=== PATIENT | male | born 1965 | race African-American/Black ===

== ENCOUNTER 2017-06-19 15:45 | Inpatient (IN) | payer OTHER ==
[2017-06-19 20:14] VITALS: BMI 26.6
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
[2017-06-19] MEDS ORDERED: ACETAMINOPHEN 325 MG TABLET (FP) PO PRN (20:50)
[2017-06-19] MEDS ORDERED: chlordiazePOXIDE HCL 25 MG CAPSULE PO PRN (20:50)
[2017-06-19] MEDS ORDERED: MAG HYDROX/AL HYDROX/SIMETH 30 ML UNIT-DOSE CUP PO PRN (20:50)
[2017-06-19] MEDS ORDERED: MENTHOL/PHENOL 1 EACH UD MM PRN (20:50)
[2017-06-19] MEDS ORDERED: IBUPROFEN 400 MG TABLET (FP) PO PRN (20:50)
[2017-06-19] MEDS ORDERED: guaiFENesin/D-METHORPHAN HB 10 ML UNIT-DOSE CUPS PO PRN (20:50)
[2017-06-19] MEDS ORDERED: P-EPHED 60MG/TRIPROLIDI 2.5MG TABLET PO PRN (20:50)
[2017-06-19] MEDS ORDERED: NICOTINE POLACRILEX 2 MG GUM BC PRN (20:50)
[2017-06-19] MEDS ORDERED: MAGNESIUM CITRATE 300 ML BOTTLE PO PRN (20:50)
[2017-06-19] MEDS ORDERED: hydrOXYzine PAMOATE 50 MG CAPSULE (FP) PO PRN (20:50)
[2017-06-19] MEDS ORDERED: LOPERAMIDE HCL 2 MG CAPSULE PO PRN (20:50)
[2017-06-19] MEDS ORDERED: MAGNESIUM HYDROX 2400MG/30ML ORAL SUSPENSION 30 ML CUP PO PRN (20:50)
[2017-06-19] MEDS ORDERED: cloNIDine HCL 0.1 MG TABLET PO ONE (20:55)
[2017-06-19] MEDS: chlordiazePOXIDE HCL 25 MG CAPSULE PO SCH (22:54)
[2017-06-19] MEDS: THIAMINE HCL 100 MG TABLET (FP) PO SCH (22:54)
[2017-06-20 01:03] LABS: URINE APPEARANCE CLEAR; URINE BILIRUBIN NEGATIVE (NEGATIVE); URINE BLOOD NEGATIVE (NEGATIVE); URINE COLOR YELLOW; URINE GLUCOSE (UA) NEGATIVE (NEGATIVE); URINE KETONE NEGATIVE (NEGATIVE); URINE NITRITE NEGATIVE (NEGATIVE)
[2017-06-20 01:07] LABS: URINE PROTEIN 1+ (NEGATIVE)
[2017-06-20 01:13] LABS: URINE HYALINE CAST 4 /lpf; URINE MUCUS RARE; URINE RBC 6 /hpf (0-3); URINE WBC 1 /hpf (3-5)
[2017-06-20] MEDS: chlordiazePOXIDE HCL 25 MG CAPSULE PO SCH ×4 (05:32→22:03)
[2017-06-20 09:59] LABS: MCH 32.1 pg (25.7-33.7); MCHC 35.1 g/dl (32.0-35.9); MEAN CELL VOLUME 91.6 fl (80-96); MEAN PLT VOLUME 8.9 fl (7.5-11.1); PLATELET COUNT 78 K/MM3 (134-434); RDW 16.5 % (11.9-15.9); WHITE BLOOD COUNT 2.7 K/mm3 (4.0-10.0)
[2017-06-20 10:27] LABS: ALBUMIN 2.1 g/dl (3.4-5.0); ALK PHOS 213 U/L (45-117); ANION GAP 12 (8-16); BILIRUBIN,TOTAL 1.7 mg/dL (0.2-1.0); CALCIUM 7.6 mg/dL (8.5-10.1); CO2 24 mmol/L (21-32); CREATININE 2.1 mg/dL (0.7-1.3); GLUCOSE,RANDOM 145 mg/dL (74-106); SGOT/AST 102 U/L (15-37); SGPT/ALT 76 U/L (12-78); TOT PROT 5.3 g/dl (6.4-8.2)
--- NOTE | 2017-06-20 10:28 | CONSULT ---
[facility] Psychiatric Consult - Data Date of interview: 06/20/17 Admission source: [facility] Identifying data: This is 51 years old male with psychiatric hospitalization history, history of depression, intoxicated with: Alcohol Substance Abuse History: moking Cessation. Smoking history: Current every day smoker. Have you smoked in the past 12 months: Yes. Aproximately how many cigarettes per day: 40. Hx Chewing Tobacco Use: No. Initiated information on smoking cessation: Yes. 'Breaking Loose' booklet given: 06/19/17. - Substance & Tx. History. Hx Alcohol Use: Yes (VODKA, BEER). Hx Substance Use: Yes (3 YEARS AGO, PERIOD OF DRUG USE UNKNOWN). Substance Use Type: Alcohol, Cocaine. Hx Substance Use Treatment: No ([facility] IN [facility] FROM [id number]). - Substances Abused. Alcohol. Route: Oral. Frequency: Daily. Amount used: VODKA 3 PINTS, BEER 6 PACK. Age of first use: 14. Date of Last Use: 06/19/17 Medical History: HTN, Seizure history Psychiatric History: Patient reports history of depression with most recent psychiatrioc admission on above more then 10m years ago, reports no suicidal history, reports taking prior to admission no psychiatric medications Physical/Sexual Abuse/Trauma History: Denies Additional Comment: Observation. Detox Unit Care Protocol Mental Status Exam - Mental Status Exam Alert and Oriented to: Person Cognitive Function: Fair Patient Appearance: Unkempt Mood: Sad Affect: Flat Patient Behavior: Sedated Speech Pattern: Delayed Voice Loudness: Mildly Soft/Quiet Thought Process: Circumstantial Thought Disorder: Being Controlled Hallucinations: Denies Suicidal Ideation: Denies Homicidal Ideation: Denies Insight/Judgement: Fair Sleep: Difficulty falling asleep Appetite: Fair Muscle strength/Tone: Mild Hypotonicity Gait/Station: Shuffling Additional Comments: Observation. Detox Unit Care Protocol Psychiatric Findings - Problem List ([place] 1, 2,3) (1) Alcohol dependence with uncomplicated withdrawal Current Visit: Yes Status: Acute (2) Alcohol-induced mood disorder Current Visit: Yes Status: Acute (3) Alcohol induced insomnia Current Visit: Yes Status: Acute - Initial Treatment Plan Initial Treatment Plan: Observation. Detox Unit Care Protocol
[2017-06-20] MEDS: NICOTINE 14 MG/24 HOURS TOPICAL PATCH TD SCH (10:29)
[2017-06-20] MEDS: PRENATAL VITAMINS W/ FOLIC ACID TABLET (FP) PO SCH (10:29)
[2017-06-20 10:46] LABS: SICKLE CELL SCREEN POSITIVE (NEGATIVE)
[2017-06-20 11:17] LABS: URINE LEUK ESTERASE Negative (NEGATIVE)
[2017-06-20 11:58] LABS: HIV 1 & 2 AB NEGATIVE; HIV 1 AGp24 NEGATIVE
[2017-06-20] MEDS ORDERED: PNEUMOCOCCAL 23 VACCINE 0.5 ML VIAL IM ONE (12:00)
[2017-06-20] MEDS ORDERED: FLU VACCINE QUAD 60 MCG/0.5 ML (MDV 17-18) IM ONE (12:00)
[2017-06-20] MEDS ORDERED: PNEUMOC 13-VAL CONJ-DIP CRM/PF 0.5 ML DISP.SYRIN IM ONE (12:00)
--- NOTE | 2017-06-20 12:57 | PN ---
[facility] CIWA - CIWA Score Nausea/Vomitin-No Nausea/No Vomiting Muscle Tremors: 4-Moderate,w/Arms Extend Anxiety: 3 Agitation: 3 Paroxysmal Sweats: 3 Orientation: 2-Disoriented Date<2 days Tacttile Disturbances: 1-Very Mild Itch/Numbness Auditory Disturbances: 0-None Visual Disturbances: 2-Mild Sensitivity Headache: 0-None Present CIWA-Ar Total Score: 18 BHS Progress Note (SOAP) Subjective: Tremors, Sweating. Objective: PT. A & O X 2 (UNCERTAIN ABOUT DAY / DATE). NO ACUTE DISTRESS. 06/20/17 12:55 Vital Signs Temperature 99.0 F 06/20/17 09:28 Pulse Rate 114 H 06/20/17 09:28 Respiratory Rate 18 06/20/17 09:28 Blood Pressure 125/83 06/20/17 09:28 O2 Sat by Pulse Oximetry (%) Laboratory Tests 06/19/17 06/20/17 06/20/17 23:37 07:00 07:00 WBC 2.7 L RBC 2.89 L Hgb 9.3 L Hct 26.4 L MCV 91.6 MCH 32.1 MCHC 35.1 RDW 16.5 H Plt Count 78 L MPV 8.9 Sickle Cell Screen Positive Sodium 141 Potassium 3.3 L Chloride 105 Carbon Dioxide 24 Anion Gap 12 BUN 22 H Creatinine 2.1 H Creat Clearance w eGFR 33.46 Random Glucose 145 H Calcium 7.6 L Total Bilirubin 1.7 H AST 102 H ALT 76 Alkaline Phosphatase 213 H Total Protein 5.3 L Albumin 2.1 L Urine Color Yellow Urine Appearance Clear Urine pH 5.0 Ur Specific [place] 1.014 Urine Protein 1+ H Urine Glucose (UA) Negative Urine Ketones Negative Urine Blood Negative Urine Nitrite Negative Urine Bilirubin Negative Urine Urobilinogen 2.0 Ur Leukocyte Esterase Negative Urine RBC 6 Urine WBC 1 Ur Epithelial Cells Rare Hyaline Casts 4 Urine Mucus Rare RPR Titer HIV 1&2 Antibody Screen HIV P24 Antigen 06/20/17 06/20/17 07:00 07:00 WBC RBC Hgb Hct MCV MCH MCHC RDW Plt Count MPV Sickle Cell Screen Sodium Potassium Chloride Carbon Dioxide Anion Gap BUN Creatinine Creat Clearance w eGFR Random Glucose Calcium Total Bilirubin AST ALT Alkaline Phosphatase Total Protein Albumin Urine Color Urine Appearance Urine pH Ur Specific [place] Urine Protein Urine Glucose (UA) Urine Ketones Urine Blood Urine Nitrite Urine Bilirubin Urine Urobilinogen Ur Leukocyte Esterase Urine RBC Urine WBC Ur Epithelial Cells Hyaline Casts Urine Mucus RPR Titer Nonreactive HIV 1&2 Antibody Screen Negative HIV P24 Antigen Negative LABS NOTED. Assessment: 06/20/17 12:56 WITHDRAWAL SYMPTOMS. HYPOKALEMIA. ANEMIA. THROMBOCYTOPENIA. 06/20/17 13:03 Plan: CONTINUE DETOX. K-DUR, 20 MEQ PO X 1 NOW, THEN 20 MEQ PO BID AFTER. FEOSOL, 325 MG PO BIDWM. REPEAT CBC, CMP ON 06/22/2017 FOR ADMISSION ABNORMAL VALUES. BGM ACBK FOR ELEVATED ADMISSION RANDOM GLUCOSE LEVEL. D/C MAGNESIUM-CONTAINING MEDS. INCREASE DAILY PO FLUID INTAKE.
[2017-06-20] MEDS ORDERED: POTASSIUM CHLORIDE TABS 20 MEQ TABLET.ER (FP) PO ONE (13:30)
--- NOTE | 2017-06-20 17:09 | EKG ---
Test Reason : Blood Pressure : / mmHG Vent. Rate : 084 BPM Atrial Rate : 084 BPM P-R Int : 152 ms QRS Dur : 088 ms QT Int : 434 ms P-R-T Axes : 071 077 091 degrees QTc Int : 512 ms NORMAL SINUS RHYTHM MINIMAL VOLTAGE CRITERIA FOR LVH, MAY BE NORMAL VARIANT T WAVE ABNORMALITY, CONSIDER INFEROLATERAL ISCHEMIA PROLONGED QT ABNORMAL ECG NO PREVIOUS ECGS AVAILABLE Confirmed by CASSI CHANCE, MELANY (2013) on 06/20/2017 5:08:56 PM Referred By: Confirmed By:MELANY YE MD
[2017-06-20] MEDS: POTASSIUM CHLORIDE TABS 20 MEQ TABLET.ER (FP) PO SCH (17:21)
[2017-06-20] MEDS: FERROUS SO4 325 MG TABLET (FP) PO SCH (17:21)
[2017-06-20] MEDS: diphenhydrAMINE HCL 50 MG CAPSULE PO PRN (22:03)
[2017-06-20] MEDS: THIAMINE HCL 100 MG TABLET (FP) PO SCH (22:03)
[2017-06-21] MEDS: chlordiazePOXIDE HCL 25 MG CAPSULE PO SCH ×3 (05:45→17:09)
[2017-06-21] MEDS: FERROUS SO4 325 MG TABLET (FP) PO SCH ×2 (08:11→17:09)
[2017-06-21] MEDS: NICOTINE 14 MG/24 HOURS TOPICAL PATCH TD SCH (10:28)
[2017-06-21] MEDS: POTASSIUM CHLORIDE TABS 20 MEQ TABLET.ER (FP) PO SCH ×2 (10:28→17:09)
[2017-06-21] MEDS: PRENATAL VITAMINS W/ FOLIC ACID TABLET (FP) PO SCH (10:28)
--- NOTE | 2017-06-21 13:10 | PN ---
[facility] CIWA - CIWA Score Nausea/Vomitin-No Nausea/No Vomiting Muscle Tremors: 4-Moderate,w/Arms Extend Anxiety: 3 Agitation: 2 Paroxysmal Sweats: 3 Orientation: 2-Disoriented Date<2 days Tacttile Disturbances: 2-Mild Itch/Numbness/Burn Auditory Disturbances: 2-Mild Harshness/Frighten Visual Disturbances: 0-None Headache: 0-None Present CIWA-Ar Total Score: 18 S Progress Note (SOAP) Subjective: Tremors, Sweating, Stomach Cramping, Interrupted Sleep. Objective: PT. A & O X 2 (UNCERTAIN ABOUT DAY / DATE). PT. OBSERVED AMBULATING ON UNIT. NO ACUTE DISTRESS. PT. DENIES CHEST PAIN. 06/21/17 13:07 Vital Signs Temperature 98.2 F 06/21/17 10:00 Pulse Rate 121 H 06/21/17 10:00 Respiratory Rate 18 06/21/17 10:00 Blood Pressure 136/94 06/21/17 10:00 O2 Sat by Pulse Oximetry (%) Laboratory Tests 06/19/17 06/20/17 06/20/17 23:37 07:00 07:00 WBC 2.7 L RBC 2.89 L Hgb 9.3 L Hct 26.4 L MCV 91.6 MCH 32.1 MCHC 35.1 RDW 16.5 H Plt Count 78 L MPV 8.9 Sickle Cell Screen Positive Sodium 141 Potassium 3.3 L Chloride 105 Carbon Dioxide 24 Anion Gap 12 BUN 22 H Creatinine 2.1 H Creat Clearance w eGFR 33.46 POC Glucometer Random Glucose 145 H Calcium 7.6 L Total Bilirubin 1.7 H AST 102 H ALT 76 Alkaline Phosphatase 213 H Total Protein 5.3 L Albumin 2.1 L Urine Color Yellow Urine Appearance Clear Urine pH 5.0 Ur Specific [place] 1.014 Urine Protein 1+ H Urine Glucose (UA) Negative Urine Ketones Negative Urine Blood Negative Urine Nitrite Negative Urine Bilirubin Negative Urine Urobilinogen 2.0 Ur Leukocyte Esterase Negative Urine RBC 6 Urine WBC 1 Ur Epithelial Cells Rare Hyaline Casts 4 Urine Mucus Rare RPR Titer HIV 1&2 Antibody Screen HIV P24 Antigen 06/20/17 06/20/17 06/21/17 07:00 07:00 05:47 WBC RBC Hgb Hct MCV MCH MCHC RDW Plt Count MPV Sickle Cell Screen Sodium Potassium Chloride Carbon Dioxide Anion Gap BUN Creatinine Creat Clearance w eGFR POC Glucometer 118 Random Glucose Calcium Total Bilirubin AST ALT Alkaline Phosphatase Total Protein Albumin Urine Color Urine Appearance Urine pH Ur Specific [place] Urine Protein Urine Glucose (UA) Urine Ketones Urine Blood Urine Nitrite Urine Bilirubin Urine Urobilinogen Ur Leukocyte Esterase Urine RBC Urine WBC Ur Epithelial Cells Hyaline Casts Urine Mucus RPR Titer Nonreactive HIV 1&2 Antibody Screen Negative HIV P24 Antigen Negative LABS NOTED. RESULT OF BGM NOTED. 06/21/17 13:09 Assessment: 06/21/17 13:08 WITHDRAWAL SYMPTOMS. Plan: CONTINUE DETOX.
[2017-06-21] MEDS: THIAMINE HCL 100 MG TABLET (FP) PO SCH (22:08)
[2017-06-21] MEDS: chlordiazePOXIDE 5 MG CAPSULE PO SCH (22:08)
[2017-06-22] MEDS: chlordiazePOXIDE 5 MG CAPSULE PO SCH ×3 (05:39→17:35)
[2017-06-22] MEDS: FERROUS SO4 325 MG TABLET (FP) PO SCH ×2 (07:33→17:35)
[2017-06-22 10:20] LABS: BASOPHIL 0.9 % (0-2.0); EOSINOPHIL 1.4 % (0-4.5); MCH 32.1 pg (25.7-33.7); MCHC 34.5 g/dl (32.0-35.9); MEAN CELL VOLUME 92.9 fl (80-96); MEAN PLT VOLUME 8.5 fl (7.5-11.1); NEUTROPHILS 64.9 % (42.8-82.8); PLATELET COUNT 81 K/MM3 (134-434); RDW 16.6 % (11.9-15.9); WHITE BLOOD COUNT 3.6 K/mm3 (4.0-10.0)
[2017-06-22] MEDS: PRENATAL VITAMINS W/ FOLIC ACID TABLET (FP) PO SCH (10:23)
[2017-06-22] MEDS: NICOTINE 14 MG/24 HOURS TOPICAL PATCH TD SCH (10:23)
[2017-06-22] MEDS: POTASSIUM CHLORIDE TABS 20 MEQ TABLET.ER (FP) PO SCH ×2 (10:23→17:35)
[2017-06-22 10:28] LABS: ALBUMIN 1.9 g/dl (3.4-5.0); ANION GAP 5 (8-16); BILIRUBIN,TOTAL 1.2 mg/dL (0.2-1.0); CALCIUM 7.9 mg/dL (8.5-10.1); CO2 28 mmol/L (21-32); CREATININE 1.6 mg/dL (0.7-1.3); GLUCOSE,RANDOM 117 mg/dL (74-106); SGOT/AST 66 U/L (15-37); SGPT/ALT 55 U/L (12-78)
[2017-06-22 10:29] LABS: ALK PHOS 172 U/L (45-117)
--- NOTE | 2017-06-22 18:59 | PN ---
[facility] Progress Note (SOAP) Subjective: Anxious, Tremors, Sweating. Objective: PT. A & O X 3, OBSERVED AMBULATING ON UNIT. NO ACUTE DISTRESS. PT. DENIES CHEST PAIN. 06/22/17 18:53 Vital Signs Temperature 97.6 F 06/22/17 17:27 Pulse Rate 113 H 06/22/17 17:27 Respiratory Rate 16 06/22/17 17:27 Blood Pressure 132/79 06/22/17 17:27 O2 Sat by Pulse Oximetry (%) Laboratory Tests 06/19/17 06/20/17 06/20/17 23:37 07:00 07:00 WBC 2.7 L RBC 2.89 L Hgb 9.3 L Hct 26.4 L MCV 91.6 MCH 32.1 MCHC 35.1 RDW 16.5 H Plt Count 78 L MPV 8.9 Neutrophils % Lymphocytes % Monocytes % Eosinophils % Basophils % Sickle Cell Screen Positive Sodium 141 Potassium 3.3 L Chloride 105 Carbon Dioxide 24 Anion Gap 12 BUN 22 H Creatinine 2.1 H Creat Clearance w eGFR 33.46 POC Glucometer Random Glucose 145 H Calcium 7.6 L Total Bilirubin 1.7 H AST 102 H ALT 76 Alkaline Phosphatase 213 H Total Protein 5.3 L Albumin 2.1 L Urine Color Yellow Urine Appearance Clear Urine pH 5.0 Ur Specific [place] 1.014 Urine Protein 1+ H Urine Glucose (UA) Negative Urine Ketones Negative Urine Blood Negative Urine Nitrite Negative Urine Bilirubin Negative Urine Urobilinogen 2.0 Ur Leukocyte Esterase Negative Urine RBC 6 Urine WBC 1 Ur Epithelial Cells Rare Hyaline Casts 4 Urine Mucus Rare RPR Titer HIV 1&2 Antibody Screen HIV P24 Antigen 06/20/17 06/20/17 06/21/17 07:00 07:00 05:47 WBC RBC Hgb Hct MCV MCH MCHC RDW Plt Count MPV Neutrophils % Lymphocytes % Monocytes % Eosinophils % Basophils % Sickle Cell Screen Sodium Potassium Chloride Carbon Dioxide Anion Gap BUN Creatinine Creat Clearance w eGFR POC Glucometer 118 Random Glucose Calcium Total Bilirubin AST ALT Alkaline Phosphatase Total Protein Albumin Urine Color Urine Appearance Urine pH Ur Specific [place] Urine Protein Urine Glucose (UA) Urine Ketones Urine Blood Urine Nitrite Urine Bilirubin Urine Urobilinogen Ur Leukocyte Esterase Urine RBC Urine WBC Ur Epithelial Cells Hyaline Casts Urine Mucus RPR Titer Nonreactive HIV 1&2 Antibody Screen Negative HIV P24 Antigen Negative 06/22/17 06/22/1717 05:38 07:55 07:55 WBC 3.6 L D RBC 2.98 L Hgb 9.6 L Hct 27.7 L MCV 92.9 MCH 32.1 MCHC 34.5 RDW 16.6 H Plt Count 81 L MPV 8.5 Neutrophils % 64.9 Lymphocytes % 24.4 Monocytes % 8.4 Eosinophils % 1.4 Basophils % 0.9 Sickle Cell Screen Sodium 144 Potassium 4.1 D Chloride 111 H Carbon Dioxide 28 Anion Gap 5 L BUN 16 D Creatinine 1.6 H D Creat Clearance w eGFR 45.80 POC Glucometer 105 Random Glucose 117 H Calcium 7.9 L Total Bilirubin 1.2 H D AST 66 H D ALT 55 D Alkaline Phosphatase 172 H Total Protein 5.0 L Albumin 1.9 L Urine Color Urine Appearance Urine pH Ur Specific [place] Urine Protein Urine Glucose (UA) Urine Ketones Urine Blood Urine Nitrite Urine Bilirubin Urine Urobilinogen Ur Leukocyte Esterase Urine RBC Urine WBC Ur Epithelial Cells Hyaline Casts Urine Mucus RPR Titer HIV 1&2 Antibody Screen HIV P24 Antigen LABS NOTED. RESULTS OF REPEAT CBC AND CMP NOTED. 06/22/17 19:01 Assessment: 06/22/17 18:54 WITHDRAWAL SYMPTOMS. Plan: CONTINUE DETOX. PATIENT MADE MARTE OF POSITIVE SICKLE CELL SCREEN RESULT WHILE ADMITTED FOR DETOX. 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 COPIES OF ALL LABS DRAWN WHILE ADMITTED FOR DETOX WILL BE GIVEN TO PATIENT AT TIME OF DISCHARGE FROM DETOX TO TAKE WITH HIM FOR FOLLOW- UP.
[2017-06-22] MEDS: chlordiazePOXIDE HCL 10 MG CAPSULE PO SCH (22:21)
[2017-06-22] MEDS: THIAMINE HCL 100 MG TABLET (FP) PO SCH (22:21)
[2017-06-22] MEDS: diphenhydrAMINE HCL 50 MG CAPSULE PO PRN (22:21)
[2017-06-23] MEDS: chlordiazePOXIDE HCL 10 MG CAPSULE PO SCH ×2 (06:14→10:02)
[2017-06-23] MEDS: FERROUS SO4 325 MG TABLET (FP) PO SCH (07:53)
[2017-06-23] MEDS: PRENATAL VITAMINS W/ FOLIC ACID TABLET (FP) PO SCH (09:27)
[2017-06-23] MEDS: NICOTINE 14 MG/24 HOURS TOPICAL PATCH TD SCH (09:27)
[2017-06-23 09:29] VITALS: PULSE 118
[2017-06-23] MEDS: POTASSIUM CHLORIDE TABS 20 MEQ TABLET.ER (FP) PO SCH (09:29)
[2017-06-23 14:07] VITALS: BP 120/83; TEMP 96.7
--- NOTE | 2017-06-23 16:10 | DS ---
[facility] Detox Discharge Summary Admission Date: 06/19/17 Discharge Date: 06/23/17 - History Present History: Alcohol Dependence Pertinent Past History: HTN Seizure disorder Anemia - Physical Exam Results Vital Signs: Vital Signs Temperature 96.7 F L 06/23/17 14:05 Pulse Rate 118 H 06/23/17 14:05 Respiratory Rate 18 06/23/17 14:05 Blood Pressure 120/83 06/23/17 14:05 O2 Sat by Pulse Oximetry (%) Pertinent Admission Physical Exam Findings: Withdrawal symptoms Last Vital Signs Temp Pulse Resp BP Pulse Ox 96.7 F L 118 H 18 120/83 06/23/17 14:05 06/23/17 14:05 06/23/17 14:05 06/23/17 14:05 Laboratory Tests 06/19/17 06/20/17 06/20/17 23:37 07:00 07:00 WBC 2.7 L RBC 2.89 L Hgb 9.3 L Hct 26.4 L MCV 91.6 MCH 32.1 MCHC 35.1 RDW 16.5 H Plt Count 78 L MPV 8.9 Neutrophils % Lymphocytes % Monocytes % Eosinophils % Basophils % Sickle Cell Screen Positive Sodium 141 Potassium 3.3 L Chloride 105 Carbon Dioxide 24 Anion Gap 12 BUN 22 H Creatinine 2.1 H Creat Clearance w eGFR 33.46 POC Glucometer Random Glucose 145 H Calcium 7.6 L Total Bilirubin 1.7 H AST 102 H ALT 76 Alkaline Phosphatase 213 H Total Protein 5.3 L Albumin 2.1 L Urine Color Yellow Urine Appearance Clear Urine pH 5.0 Ur Specific [place] 1.014 Urine Protein 1+ H Urine Glucose (UA) Negative Urine Ketones Negative Urine Blood Negative Urine Nitrite Negative Urine Bilirubin Negative Urine Urobilinogen 2.0 Ur Leukocyte Esterase Negative Urine RBC 6 Urine WBC 1 Ur Epithelial Cells Rare Hyaline Casts 4 Urine Mucus Rare RPR Titer HIV 1&2 Antibody Screen HIV P24 Antigen 06/20/17 06/20/17 06/21/17 07:00 07:00 05:47 WBC RBC Hgb Hct MCV MCH MCHC RDW Plt Count MPV Neutrophils % Lymphocytes % Monocytes % Eosinophils % Basophils % Sickle Cell Screen Sodium Potassium Chloride Carbon Dioxide Anion Gap BUN Creatinine Creat Clearance w eGFR POC Glucometer 118 Random Glucose Calcium Total Bilirubin AST ALT Alkaline Phosphatase Total Protein Albumin Urine Color Urine Appearance Urine pH Ur Specific [place] Urine Protein Urine Glucose (UA) Urine Ketones Urine Blood Urine Nitrite Urine Bilirubin Urine Urobilinogen Ur Leukocyte Esterase Urine RBC Urine WBC Ur Epithelial Cells Hyaline Casts Urine Mucus RPR Titer Nonreactive HIV 1&2 Antibody Screen Negative HIV P24 Antigen Negative 06/22/17 06/22/17 06/22/17 05:38 07:55 07:55 WBC 3.6 L D RBC 2.98 L Hgb 9.6 L Hct 27.7 L MCV 92.9 MCH 32.1 MCHC 34.5 RDW 16.6 H Plt Count 81 L MPV 8.5 Neutrophils % 64.9 Lymphocytes % 24.4 Monocytes % 8.4 Eosinophils % 1.4 Basophils % 0.9 Sickle Cell Screen Sodium 144 Potassium 4.1 D Chloride 111 H Carbon Dioxide 28 Anion Gap 5 L BUN 16 D Creatinine 1.6 H D Creat Clearance w eGFR 45.80 POC Glucometer 105 Random Glucose 117 H Calcium 7.9 L Total Bilirubin 1.2 H D AST 66 H D ALT 55 D Alkaline Phosphatase 172 H Total Protein 5.0 L Albumin 1.9 L Urine Color Urine Appearance Urine pH Ur Specific [place] Urine Protein Urine Glucose (UA) Urine Ketones Urine Blood Urine Nitrite Urine Bilirubin Urine Urobilinogen Ur Leukocyte Esterase Urine RBC Urine WBC Ur Epithelial Cells Hyaline Casts Urine Mucus RPR Titer HIV 1&2 Antibody Screen HIV P24 Antigen 06/23/17 06:14 WBC RBC Hgb Hct MCV MCH MCHC RDW Plt Count MPV Neutrophils % Lymphocytes % Monocytes % Eosinophils % Basophils % Sickle Cell Screen Sodium Potassium Chloride Carbon Dioxide Anion Gap BUN Creatinine Creat Clearance w eGFR POC Glucometer 99 Random Glucose Calcium Total Bilirubin AST ALT Alkaline Phosphatase Total Protein Albumin Urine Color Urine Appearance Urine pH Ur Specific [place] Urine Protein Urine Glucose (UA) Urine Ketones Urine Blood Urine Nitrite Urine Bilirubin Urine Urobilinogen Ur Leukocyte Esterase Urine RBC Urine WBC Ur Epithelial Cells Hyaline Casts Urine Mucus RPR Titer HIV 1&2 Antibody Screen HIV P24 Antigen Labs noted: UA shows 1+ protein, encouraged to drink lots of water, repeat UA - Treatment Hospital Course: Detox Protocol Followed, Detoxed Safely, Responded well, Discharged Condition Good, Rehab Referral Accepted - Medication Discharge Medications: Ambulatory Orders NK [No Known Home Medication] 06/19/17 - Diagnosis (1) Alcohol dependence with uncomplicated withdrawal Status: Acute (2) Depression Status: Chronic (3) HTN (hypertension) Status: Chronic (4) Seizure Status: Chronic (5) Nicotine dependence Status: Chronic (6) Anemia Status: Acute (7) Hypokalemia Status: Acute - AMA Did Patient Leave Against Medical Advice: No
[2017-06-25 14:18] LABS: Hgb A2 4.3 % (0.7-3.1)
== END 2017-06-23 13:49 | disposition other institution (70) | DRG 775 ==
LOC: YASAS 15:45 → Y3N 20:46
PROVIDERS: ADMIT Internal Medicine; ATTEND Internal Medicine
PROC: HZ2ZZZZ Detoxification Services for Substance Abuse Treatment (ICD-10-PCS; principal; 2017-06-19)
DX: F10.230 Alcohol dependence with withdrawal, uncomplicated (principal); F10.24 Alcohol dependence with alcohol-induced mood disorder; F10.282 Alcohol dependence with alcohol-induced sleep disorder; F17.210 Nicotine dependence, cigarettes, uncomplicated; F32.9 Major depressive disorder, single episode, unspecified; D69.6 Thrombocytopenia, unspecified; D64.9 Anemia, unspecified; I10 Essential (primary) hypertension; E87.6 Hypokalemia; Z86.69 Personal history of other diseases of the nervous system and sense organs
CPT/HCPCS: 36415; 80053; 81003; 81015; 83021; 85025; 85027; 85660; 86593; 87389; 90688; 90732; 93005; 93010; G0008; G0009

== ENCOUNTER 2017-06-23 14:05 | Inpatient (IN) | payer OTHER ==
[2017-06-23] MEDS ORDERED: MAGNESIUM HYDROX 2400MG/30ML ORAL SUSPENSION 30 ML CUP PO PRN (15:07)
[2017-06-23] MEDS ORDERED: P-EPHED 60MG/TRIPROLIDI 2.5MG TABLET PO PRN (15:07)
[2017-06-23] MEDS ORDERED: LOPERAMIDE HCL 2 MG CAPSULE PO PRN (15:07)
[2017-06-23] MEDS ORDERED: MAG HYDROX/AL HYDROX/SIMETH 30 ML UNIT-DOSE CUP PO PRN (15:07)
[2017-06-23] MEDS ORDERED: MENTHOL/PHENOL 1 EACH UD MM PRN (15:07)
[2017-06-23] MEDS ORDERED: MAGNESIUM CITRATE 300 ML BOTTLE PO PRN (15:07)
[2017-06-23] MEDS ORDERED: ACETAMINOPHEN 325 MG TABLET (FP) PO PRN (15:07)
[2017-06-23] MEDS ORDERED: NICOTINE POLACRILEX 2 MG GUM BUC PRN (15:07)
[2017-06-23] MEDS ORDERED: guaiFENesin/D-METHORPHAN HB 10 ML UNIT-DOSE CUPS PO PRN (15:07)
--- NOTE | 2017-06-23 15:13 | HP ---
[facility] Rehab Assess/Revision - Admission History Admitted to Rehab from: [facility] [place] Date of Admission to Rehab: 06/23/17 - Vital signs Vital Signs: Vital Signs Period Temp Pulse Resp BP Sys/[place] Pulse Ox Last 24 Hr 97.7 F 118 18 109/71 - Findings Detox History & Physical reviewed: Yes Concur with findings: Yes Inpatient Rehab Admission - Initial Determination Are CD services needed?: Yes Free of communicable disease: Yes Not in need of hospitalization: Yes - Rehab Admission Criteria Previous failed treatment: Yes Poor recovery environment: Yes
[2017-06-23] MEDS: FERROUS SO4 325 MG TABLET (FP) PO SCH (16:49)
[2017-06-23] MEDS: THIAMINE HCL 100 MG TABLET (FP) PO SCH (21:51)
[2017-06-24] MEDS: FERROUS SO4 325 MG TABLET (FP) PO SCH ×2 (07:10→17:47)
[2017-06-24] MEDS: PRENATAL VITAMINS W/ FOLIC ACID TABLET (FP) PO SCH (10:29)
[2017-06-24] MEDS: NICOTINE 14 MG/24 HOURS TOPICAL PATCH TD SCH (10:29)
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
[2017-06-24] MEDS: THIAMINE HCL 100 MG TABLET (FP) PO SCH (22:08)
[2017-06-25] MEDS ORDERED: cloNIDine HCL 0.1 MG TABLET PO ONE (06:46)
[2017-06-25] MEDS: FERROUS SO4 325 MG TABLET (FP) PO SCH ×2 (07:30→17:45)
[2017-06-25] MEDS: PRENATAL VITAMINS W/ FOLIC ACID TABLET (FP) PO SCH (10:20)
[2017-06-25] MEDS: NICOTINE 14 MG/24 HOURS TOPICAL PATCH TD SCH (10:20)
[2017-06-25] MEDS: THIAMINE HCL 100 MG TABLET (FP) PO SCH (21:09)
[2017-06-26] MEDS: FERROUS SO4 325 MG TABLET (FP) PO SCH ×2 (07:34→16:57)
[2017-06-26] MEDS: PRENATAL VITAMINS W/ FOLIC ACID TABLET (FP) PO SCH (10:22)
[2017-06-26] MEDS: NICOTINE 14 MG/24 HOURS TOPICAL PATCH TD SCH (10:22)
[2017-06-26] MEDS: THIAMINE HCL 100 MG TABLET (FP) PO SCH (21:35)
[2017-06-27] MEDS: FERROUS SO4 325 MG TABLET (FP) PO SCH ×2 (07:42→16:57)
[2017-06-27] MEDS: PRENATAL VITAMINS W/ FOLIC ACID TABLET (FP) PO SCH (10:23)
[2017-06-27] MEDS: NICOTINE 14 MG/24 HOURS TOPICAL PATCH TD SCH (10:24)
[2017-06-27] MEDS: THIAMINE HCL 100 MG TABLET (FP) PO SCH (21:46)
[2017-06-28] MEDS: FERROUS SO4 325 MG TABLET (FP) PO SCH ×2 (07:09→16:37)
[2017-06-28] MEDS: NICOTINE 14 MG/24 HOURS TOPICAL PATCH TD SCH (10:38)
[2017-06-28] MEDS: PRENATAL VITAMINS W/ FOLIC ACID TABLET (FP) PO SCH (10:38)
[2017-06-28] MEDS: THIAMINE HCL 100 MG TABLET (FP) PO SCH (21:58)
[2017-06-29] MEDS: FERROUS SO4 325 MG TABLET (FP) PO SCH ×2 (07:06→18:16)
[2017-06-29] MEDS: PRENATAL VITAMINS W/ FOLIC ACID TABLET (FP) PO SCH (10:17)
[2017-06-29] MEDS: NICOTINE 14 MG/24 HOURS TOPICAL PATCH TD SCH (10:18)
[2017-06-29] MEDS: THIAMINE HCL 100 MG TABLET (FP) PO SCH (21:41)
[2017-06-30] MEDS: FERROUS SO4 325 MG TABLET (FP) PO SCH ×2 (07:02→16:44)
[2017-06-30] MEDS: NICOTINE 14 MG/24 HOURS TOPICAL PATCH TD SCH (10:32)
[2017-06-30] MEDS: PRENATAL VITAMINS W/ FOLIC ACID TABLET (FP) PO SCH (10:32)
[2017-06-30] MEDS: THIAMINE HCL 100 MG TABLET (FP) PO SCH (21:54)
[2017-07-01] MEDS ORDERED: cloNIDine HCL 0.1 MG TABLET PO ONE (07:05)
[2017-07-01] MEDS: FERROUS SO4 325 MG TABLET (FP) PO SCH ×2 (07:10→16:42)
[2017-07-01] MEDS: PRENATAL VITAMINS W/ FOLIC ACID TABLET (FP) PO SCH (10:06)
[2017-07-01] MEDS: NICOTINE 14 MG/24 HOURS TOPICAL PATCH TD SCH (10:07)
[2017-07-01] MEDS: amLODIPine BESYLATE 5 MG TABLET (FP) PO SCH (11:56)
[2017-07-01] MEDS: diphenhydrAMINE HCL 50 MG CAPSULE PO PRN (21:50)
[2017-07-01] MEDS: THIAMINE HCL 100 MG TABLET (FP) PO SCH (21:50)
[2017-07-02] MEDS: FERROUS SO4 325 MG TABLET (FP) PO SCH ×2 (07:09→16:56)
[2017-07-02] MEDS: PRENATAL VITAMINS W/ FOLIC ACID TABLET (FP) PO SCH (10:11)
[2017-07-02] MEDS: amLODIPine BESYLATE 5 MG TABLET (FP) PO SCH (10:12)
[2017-07-02] MEDS: NICOTINE 14 MG/24 HOURS TOPICAL PATCH TD SCH (10:12)
[2017-07-02] MEDS: THIAMINE HCL 100 MG TABLET (FP) PO SCH (21:29)
[2017-07-03] MEDS: FERROUS SO4 325 MG TABLET (FP) PO SCH ×2 (07:36→16:51)
[2017-07-03] MEDS: PRENATAL VITAMINS W/ FOLIC ACID TABLET (FP) PO SCH (10:21)
[2017-07-03] MEDS: amLODIPine BESYLATE 5 MG TABLET (FP) PO SCH (10:21)
[2017-07-03] MEDS: NICOTINE 14 MG/24 HOURS TOPICAL PATCH TD SCH (10:21)
[2017-07-03] MEDS: THIAMINE HCL 100 MG TABLET (FP) PO SCH (21:26)
[2017-07-04] MEDS: FERROUS SO4 325 MG TABLET (FP) PO SCH ×2 (07:22→18:01)
[2017-07-04] MEDS: PRENATAL VITAMINS W/ FOLIC ACID TABLET (FP) PO SCH (10:25)
[2017-07-04] MEDS: amLODIPine BESYLATE 5 MG TABLET (FP) PO SCH (10:25)
[2017-07-04] MEDS: NICOTINE 14 MG/24 HOURS TOPICAL PATCH TD SCH (10:26)
[2017-07-04] MEDS: THIAMINE HCL 100 MG TABLET (FP) PO SCH (21:31)
[2017-07-05] MEDS: FERROUS SO4 325 MG TABLET (FP) PO SCH ×2 (07:15→16:45)
[2017-07-05] MEDS: NICOTINE 14 MG/24 HOURS TOPICAL PATCH TD SCH (10:20)
[2017-07-05] MEDS: PRENATAL VITAMINS W/ FOLIC ACID TABLET (FP) PO SCH (10:20)
[2017-07-05] MEDS: amLODIPine BESYLATE 5 MG TABLET (FP) PO SCH (10:20)
[2017-07-05] MEDS: diphenhydrAMINE HCL 50 MG CAPSULE PO PRN (21:39)
[2017-07-05] MEDS: THIAMINE HCL 100 MG TABLET (FP) PO SCH (21:39)
[2017-07-06] MEDS: FERROUS SO4 325 MG TABLET (FP) PO SCH ×2 (07:41→17:03)
[2017-07-06] MEDS: NICOTINE 14 MG/24 HOURS TOPICAL PATCH TD SCH (10:18)
[2017-07-06] MEDS: PRENATAL VITAMINS W/ FOLIC ACID TABLET (FP) PO SCH (10:18)
[2017-07-06] MEDS: amLODIPine BESYLATE 5 MG TABLET (FP) PO SCH (10:18)
[2017-07-06] MEDS: THIAMINE HCL 100 MG TABLET (FP) PO SCH (21:30)
[2017-07-07] MEDS: FERROUS SO4 325 MG TABLET (FP) PO SCH ×2 (07:04→16:41)
[2017-07-07] MEDS: amLODIPine BESYLATE 5 MG TABLET (FP) PO SCH (10:12)
[2017-07-07] MEDS: PRENATAL VITAMINS W/ FOLIC ACID TABLET (FP) PO SCH (10:12)
[2017-07-07] MEDS: NICOTINE 14 MG/24 HOURS TOPICAL PATCH TD SCH (10:12)
[2017-07-07] MEDS: diphenhydrAMINE HCL 50 MG CAPSULE PO PRN (21:44)
[2017-07-07] MEDS: THIAMINE HCL 100 MG TABLET (FP) PO SCH (21:44)
[2017-07-08] MEDS: FERROUS SO4 325 MG TABLET (FP) PO SCH ×2 (07:03→16:38)
[2017-07-08] MEDS: NICOTINE 14 MG/24 HOURS TOPICAL PATCH TD SCH (10:48)
[2017-07-08] MEDS: PRENATAL VITAMINS W/ FOLIC ACID TABLET (FP) PO SCH (10:49)
[2017-07-08] MEDS: amLODIPine BESYLATE 5 MG TABLET (FP) PO SCH (10:49)
[2017-07-08] MEDS: IBUPROFEN 400 MG TABLET (FP) PO PRN (15:47)
[2017-07-08] MEDS: diphenhydrAMINE HCL 50 MG CAPSULE PO PRN (21:56)
[2017-07-08] MEDS: THIAMINE HCL 100 MG TABLET (FP) PO SCH (21:56)
[2017-07-09] MEDS: FERROUS SO4 325 MG TABLET (FP) PO SCH ×2 (07:51→17:08)
[2017-07-09] MEDS: amLODIPine BESYLATE 5 MG TABLET (FP) PO SCH (10:37)
[2017-07-09] MEDS: NICOTINE 14 MG/24 HOURS TOPICAL PATCH TD SCH (10:37)
[2017-07-09] MEDS: PRENATAL VITAMINS W/ FOLIC ACID TABLET (FP) PO SCH (10:37)
[2017-07-09] MEDS: IBUPROFEN 400 MG TABLET (FP) PO PRN ×2 (10:38→18:49)
[2017-07-09] MEDS: THIAMINE HCL 100 MG TABLET (FP) PO SCH (21:25)
[2017-07-10] MEDS: FERROUS SO4 325 MG TABLET (FP) PO SCH ×2 (07:15→16:44)
[2017-07-10] MEDS: NICOTINE 14 MG/24 HOURS TOPICAL PATCH TD SCH (10:11)
[2017-07-10] MEDS: PRENATAL VITAMINS W/ FOLIC ACID TABLET (FP) PO SCH (10:11)
[2017-07-10] MEDS: amLODIPine BESYLATE 5 MG TABLET (FP) PO SCH (10:11)
[2017-07-10] MEDS ORDERED: amLODIPine BESYLATE 5 MG TABLET (FP) PO SCH (11:24)
[2017-07-10] MEDS ORDERED: cloNIDine HCL 0.1 MG TABLET PO ONE (11:24)
[2017-07-10] MEDS: THIAMINE HCL 100 MG TABLET (FP) PO SCH (21:38)
[2017-07-10] MEDS: IBUPROFEN 400 MG TABLET (FP) PO PRN (21:38)
[2017-07-10] MEDS: diphenhydrAMINE HCL 50 MG CAPSULE PO PRN (21:38)
[2017-07-11] MEDS: IBUPROFEN 400 MG TABLET (FP) PO PRN (06:30)
[2017-07-11] MEDS: FERROUS SO4 325 MG TABLET (FP) PO SCH ×2 (07:07→16:54)
[2017-07-11] MEDS: NICOTINE 14 MG/24 HOURS TOPICAL PATCH TD SCH (10:13)
[2017-07-11] MEDS: PRENATAL VITAMINS W/ FOLIC ACID TABLET (FP) PO SCH (10:13)
[2017-07-11] MEDS: amLODIPine BESYLATE 10 MG TABLET (FP) PO SCH (10:13)
[2017-07-11] MEDS: THIAMINE HCL 100 MG TABLET (FP) PO SCH (21:31)
[2017-07-12] MEDS ORDERED: cloNIDine HCL 0.1 MG TABLET PO ONE (07:24)
[2017-07-12] MEDS: amLODIPine BESYLATE 10 MG TABLET (FP) PO SCH ×2 (07:32→10:18)
[2017-07-12] MEDS: FERROUS SO4 325 MG TABLET (FP) PO SCH ×2 (07:32→17:00)
[2017-07-12] MEDS: PRENATAL VITAMINS W/ FOLIC ACID TABLET (FP) PO SCH (10:16)
[2017-07-12] MEDS: NICOTINE 14 MG/24 HOURS TOPICAL PATCH TD SCH (10:18)
[2017-07-12] MEDS: diphenhydrAMINE HCL 50 MG CAPSULE PO PRN (21:55)
[2017-07-12] MEDS: THIAMINE HCL 100 MG TABLET (FP) PO SCH (21:55)
[2017-07-13] MEDS: FERROUS SO4 325 MG TABLET (FP) PO SCH ×2 (07:32→17:02)
[2017-07-13] MEDS: PRENATAL VITAMINS W/ FOLIC ACID TABLET (FP) PO SCH (10:44)
[2017-07-13] MEDS: amLODIPine BESYLATE 10 MG TABLET (FP) PO SCH (10:44)
[2017-07-13] MEDS: NICOTINE 14 MG/24 HOURS TOPICAL PATCH TD SCH (10:44)
[2017-07-13] MEDS: THIAMINE HCL 100 MG TABLET (FP) PO SCH (21:38)
[2017-07-14] MEDS: FERROUS SO4 325 MG TABLET (FP) PO SCH ×2 (07:04→16:51)
[2017-07-14] MEDS: amLODIPine BESYLATE 10 MG TABLET (FP) PO SCH (10:47)
[2017-07-14] MEDS: NICOTINE 14 MG/24 HOURS TOPICAL PATCH TD SCH (10:47)
[2017-07-14] MEDS: PRENATAL VITAMINS W/ FOLIC ACID TABLET (FP) PO SCH (10:47)
[2017-07-14] MEDS: IBUPROFEN 400 MG TABLET (FP) PO PRN (14:30)
[2017-07-14] MEDS: THIAMINE HCL 100 MG TABLET (FP) PO SCH (21:46)
[2017-07-15] MEDS: FERROUS SO4 325 MG TABLET (FP) PO SCH (07:01)
[2017-07-15 07:28] VITALS: TEMP 97.5
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
[2017-07-15] MEDS: NICOTINE 14 MG/24 HOURS TOPICAL PATCH TD SCH (10:02)
[2017-07-15] MEDS: PRENATAL VITAMINS W/ FOLIC ACID TABLET (FP) PO SCH (10:02)
[2017-07-15] MEDS: amLODIPine BESYLATE 10 MG TABLET (FP) PO SCH (10:02)
[2017-07-15 11:21] VITALS: BP 120/81; PULSE 100
== END 2017-07-15 11:50 | disposition home or self-care (01) | DRG 772 ==
LOC: YASAS 14:05 → Y5N 14:07
PROVIDERS: ADMIT Psychiatry & Neurology Psychiatry; ATTEND Psychiatry & Neurology Psychiatry
PROC: HZ42ZZZ Group Counseling for Substance Abuse Treatment, Cognitive-Behavioral (ICD-10-PCS; principal; 2017-06-23)
DX: F10.20 Alcohol dependence, uncomplicated (principal); F17.210 Nicotine dependence, cigarettes, uncomplicated; I10 Essential (primary) hypertension
CPT/HCPCS: 82140

== ENCOUNTER 2018-07-16 11:27 | Inpatient (IN) | payer OTHER ==
[2018-07-16 13:43] VITALS: BMI 26.1
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
[2018-07-16] MEDS ORDERED: MAGNESIUM CITRATE 300 ML BOTTLE PO PRN (17:32)
[2018-07-16] MEDS ORDERED: NICOTINE POLACRILEX 2 MG GUM BC PRN (17:32)
[2018-07-16] MEDS ORDERED: MAG HYDROX/AL HYDROX/SIMETH 30 ML UNIT-DOSE CUP PO PRN (17:32)
[2018-07-16] MEDS ORDERED: ACETAMINOPHEN 325 MG TABLET (FP) PO PRN (17:32)
[2018-07-16] MEDS ORDERED: IBUPROFEN 400 MG TABLET (FP) PO PRN (17:32)
[2018-07-16] MEDS ORDERED: chlordiazePOXIDE HCL 25 MG CAPSULE PO PRN (17:32)
[2018-07-16] MEDS ORDERED: MAGNESIUM HYDROX 2400MG/30ML ORAL SUSPENSION 30 ML CUP PO PRN (17:32)
[2018-07-16] MEDS ORDERED: MENTHOL/PHENOL 1 EACH UD MM PRN (17:32)
[2018-07-16] MEDS ORDERED: LOPERAMIDE HCL 2 MG CAPSULE PO PRN (17:32)
[2018-07-16] MEDS ORDERED: chlordiazePOXIDE HCL 25 MG CAPSULE PO ONE (18:15)
[2018-07-16] MEDS ORDERED: cloNIDine HCL 0.1 MG TABLET PO ONE (18:15)
[2018-07-16] MEDS: CLOTRIMAZOLE 1% CREAM 15 GM TUBE TP SCH (22:10)
[2018-07-16] MEDS: THIAMINE HCL 100 MG TABLET (FP) PO SCH (22:11)
[2018-07-16] MEDS: chlordiazePOXIDE HCL 25 MG CAPSULE PO SCH (22:11)
[2018-07-16 23:14] LABS: URINE APPEARANCE CLEAR; URINE BILIRUBIN NEGATIVE (<2.0 mg/dL); URINE COLOR LTYELLOW; URINE GLUCOSE (UA) NEGATIVE (NEGATIVE); URINE KETONE NEGATIVE (NEGATIVE); URINE LEUK ESTERASE NEGATIVE (NEGATIVE); URINE NITRITE NEGATIVE (NEGATIVE); URINE PROTEIN 1+ (NEGATIVE); URINE UROBILINOGEN NEGATIVE mg/dL (0.2-1.0)
[2018-07-17] MEDS: chlordiazePOXIDE HCL 25 MG CAPSULE PO SCH ×4 (05:16→22:23)
[2018-07-17] MEDS: amLODIPine BESYLATE 10 MG TABLET (FP) PO SCH (10:17)
[2018-07-17] MEDS: CLOTRIMAZOLE 1% CREAM 15 GM TUBE TP SCH ×2 (10:17→22:23)
[2018-07-17] MEDS: PRENATAL VITAMINS W/ FOLIC ACID TABLET (FP) PO SCH (10:17)
[2018-07-17] MEDS: NICOTINE 21 MG/24 HOURS TOPICAL PATCH TD SCH (10:18)
[2018-07-17] MEDS: PETROLATUM, WHITE 30 GM TUBE TP SCH (10:19)
[2018-07-17 10:36] LABS: HEMATOCRIT 39.4 % (35.4-49); HEMOGLOBIN 13.7 GM/dL (11.7-16.9); MCH 30.5 pg (25.7-33.7); MCHC 34.7 g/dl (32.0-35.9); MEAN CELL VOLUME 87.9 fl (80-96); PLATELET COUNT 226 K/MM3 (134-434); RBC 4.49 M/mm3 (4.00-5.60); RDW 15.2 % (11.9-15.9); WHITE BLOOD COUNT 4.5 K/mm3 (4.0-10.0)
--- NOTE | 2018-07-17 10:40 | PN ---
S CIWA - CIWA Score Nausea/Vomitin-No Nausea/No Vomiting Muscle Tremors: 2 Anxiety: 3 Agitation: 3 Paroxysmal Sweats: 3 Orientation: 0-Oriented Tacttile Disturbances: 0-None Auditory Disturbances: 0-None Visual Disturbances: 0-None Headache: 0-None Present CIWA-Ar Total Score: 11 BHS Progress Note (SOAP) Subjective: PATIENT C/O SHAKES (INTERMITTENT) AND NIGHT SWEATS. ANXIOUS/RESTLESS. Objective: 07/17/18 10:38 Vital Signs Temperature 97.3 F L 07/17/18 09:21 Pulse Rate 99 H 07/17/18 09:21 Respiratory Rate 20 07/17/18 09:21 Blood Pressure 141/95 07/17/18 09:21 O2 Sat by Pulse Oximetry (%) Laboratory Tests 07/16/18 22:00 Urine Color Ltyellow Urine Appearance Clear Urine pH 5.0 Ur Specific [place] 1.013 Urine Protein 1+ H Urine Glucose (UA) Negative Urine Ketones Negative Urine Blood Negative Urine Nitrite Negative Urine Bilirubin Negative Urine Urobilinogen Negative Ur Leukocyte Esterase Negative Urine WBC (Auto) <1 Urine RBC (Auto) <1 PE: ALERT AND ORIENTED X 3 SKIN WARM, +FACIAL MOISTURE EXT FULL ROM, +TREMORS (INTERMITTENT) AMB AD LUIS ANXIOUS Assessment: 07/17/18 10:40 WITHDRAWAL SX Plan: CONTINUE DETOX ENCOURAGE ORAL FLUIDS CONTINUE TO MONITOR CLINICALLY
[2018-07-17 10:53] LABS: ALBUMIN 3.3 g/dl (3.4-5.0); ALK PHOS 73 U/L (45-117); ANION GAP 8 MMOL/L (8-16); BILIRUBIN,TOTAL 0.4 mg/dL (0.2-1); BLOOD UREA NITROGEN 24 mg/dL (7-18); CHLORIDE 107 mmol/L (98-107); CO2 29 mmol/L (21-32); CREATININE 1.6 mg/dL (0.55-1.3); GLUCOSE,RANDOM 99 mg/dL (74-106); SGOT/AST 22 U/L (15-37); SGPT/ALT 26 U/L (13-61); SODIUM 144 mmol/L (136-145); TOT PROT 6.8 g/dl (6.4-8.2)
--- NOTE | 2018-07-17 12:00 | EKG ---
Test Reason : Blood Pressure : / mmHG Vent. Rate : 100 BPM Atrial Rate : 100 BPM P-R Int : 160 ms QRS Dur : 078 ms QT Int : 328 ms P-R-T Axes : 071 056 051 degrees QTc Int : 423 ms NORMAL SINUS RHYTHM RIGHT ATRIAL ENLARGEMENT NONSPECIFIC T WAVE ABNORMALITY ABNORMAL ECG WHEN COMPARED WITH ECG OF 19-JUN-2017 23:05, T WAVE INVERSION NO LONGER EVIDENT IN INFERIOR LEADS NONSPECIFIC T WAVE ABNORMALITY HAS REPLACED INVERTED T WAVES IN ANTEROLATERAL LEADS QT HAS SHORTENED Confirmed by MELANY YE MD ([id number]) on 07/17/2018 11:59:59 AM Referred By: Confirmed By:MELANY YE MD
[2018-07-17] MEDS: THIAMINE HCL 100 MG TABLET (FP) PO SCH (22:23)
[2018-07-18] MEDS: chlordiazePOXIDE HCL 25 MG CAPSULE PO SCH ×3 (05:19→17:21)
[2018-07-18] MEDS: amLODIPine BESYLATE 10 MG TABLET (FP) PO SCH (10:31)
[2018-07-18] MEDS: PRENATAL VITAMINS W/ FOLIC ACID TABLET (FP) PO SCH (10:31)
[2018-07-18] MEDS: NICOTINE 21 MG/24 HOURS TOPICAL PATCH TD SCH (10:32)
[2018-07-18] MEDS: CLOTRIMAZOLE 1% CREAM 15 GM TUBE TP SCH ×2 (10:32→22:13)
[2018-07-18] MEDS: PETROLATUM, WHITE 30 GM TUBE TP SCH (10:34)
--- NOTE | 2018-07-18 11:26 | PN ---
S CIWA - CIWA Score Nausea/Vomitin Muscle Tremors: 2 Anxiety: 2 Agitation: 2 Paroxysmal Sweats: No Perspiration Orientation: 0-Oriented Tacttile Disturbances: 0-None Auditory Disturbances: 0-None Visual Disturbances: 0-None Headache: 0-None Present CIWA-Ar Total Score: 8 BHS Progress Note (SOAP) Subjective: PATIENT C/O SHAKES, ANXIETY/RESTLESSNESS, NAUSEA/DIARRHEA. Objective: 07/18/18 11:22 Laboratory Tests 07/16/18 07/17/18 07/17/18 22:00 07:00 07:00 WBC 4.5 RBC 4.49 Hgb 13.7 Hct 39.4 D MCV 87.9 MCH 30.5 MCHC 34.7 RDW 15.2 Plt Count 226 D MPV 8.0 Sodium 144 Potassium 4.0 Chloride 107 Carbon Dioxide 29 Anion Gap 8 BUN 24 H Creatinine 1.6 H Creat Clearance w eGFR 45.62 Random Glucose 99 Calcium 9.0 Total Bilirubin 0.4 AST 22 ALT 26 Alkaline Phosphatase 73 Total Protein 6.8 Albumin 3.3 L Urine Color Ltyellow Urine Appearance Clear Urine pH 5.0 Ur Specific [place] 1.013 Urine Protein 1+ H Urine Glucose (UA) Negative Urine Ketones Negative Urine Blood Negative Urine Nitrite Negative Urine Bilirubin Negative Urine Urobilinogen Negative Ur Leukocyte Esterase Negative Urine WBC (Auto) <1 Urine RBC (Auto) <1 RPR Titer 07/17/18 07:00 WBC RBC Hgb Hct MCV MCH MCHC RDW Plt Count MPV Sodium Potassium Chloride Carbon Dioxide Anion Gap BUN Creatinine Creat Clearance w eGFR Random Glucose Calcium Total Bilirubin AST ALT Alkaline Phosphatase Total Protein Albumin Urine Color Urine Appearance Urine pH Ur Specific [place] Urine Protein Urine Glucose (UA) Urine Ketones Urine Blood Urine Nitrite Urine Bilirubin Urine Urobilinogen Ur Leukocyte Esterase Urine WBC (Auto) Urine RBC (Auto) RPR Titer Nonreactive PE: ALERT AND ORIENTED X 3 SKIN WARM AND DRY AMB AD LUIS EXT FULL ROM, +TREMORS ANXIOUS Assessment: 07/18/18 11:25 WITHDRAWAL SX Plan: CONTINUE DETOX ENCOURAGE ORAL FLUIDS CONTINUE TO MONITOR CLINICALLY
[2018-07-18] MEDS: chlordiazePOXIDE 5 MG CAPSULE PO SCH (22:13)
[2018-07-18] MEDS: THIAMINE HCL 100 MG TABLET (FP) PO SCH (22:14)
[2018-07-19] MEDS: chlordiazePOXIDE 5 MG CAPSULE PO SCH ×3 (05:34→17:30)
[2018-07-19] MEDS ORDERED: VERAPAMIL HCL 80 MG TABLET PO SCH (10:15)
[2018-07-19] MEDS: PRENATAL VITAMINS W/ FOLIC ACID TABLET (FP) PO SCH (10:17)
[2018-07-19] MEDS: amLODIPine BESYLATE 10 MG TABLET (FP) PO SCH ×2 (10:18→12:33)
[2018-07-19] MEDS: PETROLATUM, WHITE 30 GM TUBE TP SCH (10:19)
[2018-07-19] MEDS: NICOTINE 21 MG/24 HOURS TOPICAL PATCH TD SCH (10:20)
[2018-07-19] MEDS: CLOTRIMAZOLE 1% CREAM 15 GM TUBE TP SCH ×2 (10:20→22:14)
--- NOTE | 2018-07-19 11:50 | PN ---
BHS Progress Note (SOAP) Subjective: PT REPORTS DETOX PROCEEDING WELL AND MEDS EFFECTIVE. ALERT O X 3. Objective: 07/19/18 11:45 Vital Signs 07/19/18 07/19/18 06:27 09:42 Temperature 97.2 F L 96.7 F L Pulse Rate 91 H 101 H Respiratory 18 20 Rate Blood Pressure 146/92 153/96 Laboratory Tests 07/16/18 07/17/18 07/17/18 22:00 07:00 07:00 WBC 4.5 RBC 4.49 Hgb 13.7 Hct 39.4 D MCV 87.9 MCH 30.5 MCHC 34.7 RDW 15.2 Plt Count 226 D MPV 8.0 Sodium 144 Potassium 4.0 Chloride 107 Carbon Dioxide 29 Anion Gap 8 BUN 24 H Creatinine 1.6 H Creat Clearance w eGFR 45.62 Random Glucose 99 Calcium 9.0 Total Bilirubin 0.4 AST 22 ALT 26 Alkaline Phosphatase 73 Total Protein 6.8 Albumin 3.3 L Urine Color Ltyellow Urine Appearance Clear Urine pH 5.0 Ur Specific [place] 1.013 Urine Protein 1+ H Urine Glucose (UA) Negative Urine Ketones Negative Urine Blood Negative Urine Nitrite Negative Urine Bilirubin Negative Urine Urobilinogen Negative Ur Leukocyte Esterase Negative Urine WBC (Auto) <1 Urine RBC (Auto) <1 RPR Titer 07/17/18 07:00 WBC RBC Hgb Hct MCV MCH MCHC RDW Plt Count MPV Sodium Potassium Chloride Carbon Dioxide Anion Gap BUN Creatinine Creat Clearance w eGFR Random Glucose Calcium Total Bilirubin AST ALT Alkaline Phosphatase Total Protein Albumin Urine Color Urine Appearance Urine pH Ur Specific [place] Urine Protein Urine Glucose (UA) Urine Ketones Urine Blood Urine Nitrite Urine Bilirubin Urine Urobilinogen Ur Leukocyte Esterase Urine WBC (Auto) Urine RBC (Auto) RPR Titer Nonreactive Assessment: 07/19/18 11:49 DECREASED WITHDRAWAL SX Plan: CONTINUE DETOX CLONIDINE 0.1 MG PO BID PRN
[2018-07-19] MEDS: chlordiazePOXIDE HCL 10 MG CAPSULE PO SCH (22:13)
[2018-07-19] MEDS: cloNIDine HCL 0.1 MG TABLET PO PRN (22:13)
[2018-07-19] MEDS: THIAMINE HCL 100 MG TABLET (FP) PO SCH (22:14)
[2018-07-19] MEDS: MELATONIN 5 MG TABLETS PO PRN (22:15)
[2018-07-20] MEDS: chlordiazePOXIDE HCL 10 MG CAPSULE PO SCH ×3 (05:26→17:15)
[2018-07-20] MEDS: PRENATAL VITAMINS W/ FOLIC ACID TABLET (FP) PO SCH (10:25)
[2018-07-20] MEDS: NICOTINE 21 MG/24 HOURS TOPICAL PATCH TD SCH (10:25)
[2018-07-20] MEDS: amLODIPine BESYLATE 10 MG TABLET (FP) PO SCH (10:25)
[2018-07-20] MEDS: CLOTRIMAZOLE 1% CREAM 15 GM TUBE TP SCH ×2 (10:26→22:10)
[2018-07-20] MEDS: PETROLATUM, WHITE 30 GM TUBE TP SCH (10:28)
--- NOTE | 2018-07-20 14:35 | PN ---
BHS Progress Note (SOAP) Subjective: Diarrhea, tremors Objective: 07/20/18 14:31 Last Vital Signs Temp Pulse Resp BP Pulse Ox 96.4 F L 103 H 18 124/87 07/20/18 13:20 07/20/18 13:20 07/20/18 13:20 07/20/18 13:20 Laboratory Tests 07/16/18 07/17/18 07/17/18 22:00 07:00 07:00 WBC 4.5 RBC 4.49 Hgb 13.7 Hct 39.4 D MCV 87.9 MCH 30.5 MCHC 34.7 RDW 15.2 Plt Count 226 D MPV 8.0 Sodium 144 Potassium 4.0 Chloride 107 Carbon Dioxide 29 Anion Gap 8 BUN 24 H Creatinine 1.6 H Creat Clearance w eGFR 45.62 Random Glucose 99 Calcium 9.0 Total Bilirubin 0.4 AST 22 ALT 26 Alkaline Phosphatase 73 Total Protein 6.8 Albumin 3.3 L Urine Color Ltyellow Urine Appearance Clear Urine pH 5.0 Ur Specific [place] 1.013 Urine Protein 1+ H Urine Glucose (UA) Negative Urine Ketones Negative Urine Blood Negative Urine Nitrite Negative Urine Bilirubin Negative Urine Urobilinogen Negative Ur Leukocyte Esterase Negative Urine WBC (Auto) <1 Urine RBC (Auto) <1 RPR Titer 07/17/18 07:00 WBC RBC Hgb Hct MCV MCH MCHC RDW Plt Count MPV Sodium Potassium Chloride Carbon Dioxide Anion Gap BUN Creatinine Creat Clearance w eGFR Random Glucose Calcium Total Bilirubin AST ALT Alkaline Phosphatase Total Protein Albumin Urine Color Urine Appearance Urine pH Ur Specific [place] Urine Protein Urine Glucose (UA) Urine Ketones Urine Blood Urine Nitrite Urine Bilirubin Urine Urobilinogen Ur Leukocyte Esterase Urine WBC (Auto) Urine RBC (Auto) RPR Titer Nonreactive Labs reviewed: serum creatinine 1.6, bun 24, UA: 1+ protein Assessment: 07/20/18 14:34 Withdrawal symptoms Noted with CKD and persistent proteinuria Plan: Continue detox CKD: encouraged PO water intake, follow up with PCP for management Persistent proteinuria: follow up with PCP for management
[2018-07-20] MEDS: cloNIDine HCL 0.1 MG TABLET PO PRN (19:06)
[2018-07-20] MEDS: THIAMINE HCL 100 MG TABLET (FP) PO SCH (22:10)
[2018-07-20] MEDS: MELATONIN 5 MG TABLETS PO PRN (22:11)
[2018-07-21 09:22] VITALS: BP 136/84; PULSE 65; TEMP 96.6
[2018-07-21] MEDS: NICOTINE 21 MG/24 HOURS TOPICAL PATCH TD SCH (10:21)
[2018-07-21] MEDS: CLOTRIMAZOLE 1% CREAM 15 GM TUBE TP SCH (10:21)
[2018-07-21] MEDS: amLODIPine BESYLATE 10 MG TABLET (FP) PO SCH (10:21)
[2018-07-21] MEDS: PRENATAL VITAMINS W/ FOLIC ACID TABLET (FP) PO SCH (10:22)
[2018-07-21] MEDS: PETROLATUM, WHITE 30 GM TUBE TP SCH (10:23)
--- NOTE | 2018-07-21 11:08 | DS ---
[facility] Detox Discharge Summary Admission Date: 07/16/18 Discharge Date: 07/21/18 - History Present History: Alcohol Dependence Additional Comments: 52 years old admitted on 07/16/18 for alcohol withdrawal sx completed alcohol detox regimen tolerated well alert oriented x 3 no acute distress aftercare [facility] - Physical Exam Results Vital Signs: Vital Signs Temperature 96.6 F L 07/21/18 09:21 Pulse Rate 65 07/21/18 09:21 Respiratory Rate 18 07/21/18 09:21 Blood Pressure 136/84 07/21/18 09:21 O2 Sat by Pulse Oximetry (%) Pertinent Admission Physical Exam Findings: alcohol withdrawal sx Vital Signs Temperature 96.6 F L 07/21/18 09:21 Pulse Rate 65 07/21/18 09:21 Respiratory Rate 18 07/21/18 09:21 Blood Pressure 136/84 07/21/18 09:21 O2 Sat by Pulse Oximetry (%) Laboratory Last Values WBC 4.5 K/mm3 (4.0-10.0) 07/17/18 07:00 RBC 4.49 M/mm3 (4.00-5.60) 07/17/18 07:00 Hgb 13.7 GM/dL (11.7-16.9) 07/17/18 07:00 Hct 39.4 % (35.4-49) D 07/17/18 07:00 MCV 87.9 fl (80-96) 07/17/18 07:00 MCH 30.5 pg (25.7-33.7) 07/17/18 07:00 MCHC 34.7 g/dl (32.0-35.9) 07/17/18 07:00 RDW 15.2 % (11.9-15.9) 07/17/18 07:00 Plt Count 226 K/MM3 (134-434) D 07/17/18 07:00 MPV 8.0 fl (7.5-11.1) 07/17/18 07:00 Sodium 144 mmol/L (136-145) 07/17/18 07:00 Potassium 4.0 mmol/L (3.5-5.1) 07/17/18 07:00 Chloride 107 mmol/L (98-107) 07/17/18 07:00 Carbon Dioxide 29 mmol/L (21-32) 07/17/18 07:00 Anion Gap 8 MMOL/L (8-16) 07/17/18 07:00 BUN 24 mg/dL (7-18) H 07/17/18 07:00 Creatinine 1.6 mg/dL (0.55-1.3) H 07/17/18 07:00 Creat Clearance w eGFR 45.62 (>60) 07/17/18 07:00 Random Glucose 99 mg/dL (74-106) 07/17/18 07:00 Calcium 9.0 mg/dL (8.5-10.1) 07/17/18 07:00 Total Bilirubin 0.4 mg/dL (0.2-1) 07/17/18 07:00 AST 22 U/L (15-37) 07/17/18 07:00 ALT 26 U/L (13-61) 07/17/18 07:00 Alkaline Phosphatase 73 U/L (45-117) 07/17/18 07:00 Total Protein 6.8 g/dl (6.4-8.2) 07/17/18 07:00 Albumin 3.3 g/dl (3.4-5.0) L 07/17/18 07:00 Urine Color Ltyellow 07/16/18 22:00 Urine Appearance Clear 07/16/18 22:00 Urine pH 5.0 (5.0-8.0) 07/16/18 22:00 Ur Specific [place] 1.013 (1.010-1.035) 07/16/18 22:00 Urine Protein 1+ (NEGATIVE) H 07/16/18 22:00 Urine Glucose (UA) Negative (NEGATIVE) 07/16/18 22:00 Urine Ketones Negative (NEGATIVE) 07/16/18 22:00 Urine Blood Negative (NEGATIVE) 07/16/18 22:00 Urine Nitrite Negative (NEGATIVE) 07/16/18 22:00 Urine Bilirubin Negative (<2.0 mg/dL) 07/16/18 22:00 Urine Urobilinogen Negative mg/dL (0.2-1.0) 07/16/18 22:00 Ur Leukocyte Esterase Negative (NEGATIVE) 07/16/18 22:00 Urine WBC (Auto) <1 /hpf (3-5) 07/16/18 22:00 Urine RBC (Auto) <1 /hpf (0-3) 07/16/18 22:00 RPR Titer Nonreactive (NONREACTIVE) 07/17/18 07:00 lab noted - Treatment Hospital Course: Detox Protocol Followed, Detoxed Safely, Responded well, Discharged Condition Good, Rehab Referral Accepted Patient has Accepted a Rehab Referral to: [facility] - Medication Discharge Medications: Ambulatory Orders Amlodipine Besylate [Norvasc -] 10 mg PO DAILY #14 tablet 07/21/18 Amlodipine Besylate [Norvasc -] 10 mg PO DAILY #14 tablet 07/21/18 Verapamil HCl [Calan] 80 mg PO HS #14 tablet 07/21/18 - Diagnosis (1) Renal insufficiency Current Visit: Yes Status: Chronic (2) Alcohol dependence with uncomplicated withdrawal Current Visit: Yes Status: Acute (3) HTN (hypertension) Current Visit: Yes Status: Chronic Qualifiers: Hypertension type: essential hypertension Qualified Code(s): I10 - Essential (primary) hypertension (4) Nicotine dependence Current Visit: Yes Status: Acute Qualifiers: Nicotine product type: cigarettes Substance use status: in withdrawal Qualified Code(s): F17.213 - Nicotine dependence, cigarettes, with withdrawal - AMA Did Patient Leave Against Medical Advice: No
== END 2018-07-21 12:49 | disposition other institution (70) | DRG 774 ==
LOC: YASAS 11:27 → Y3N 17:01
PROC: HZ2ZZZZ Detoxification Services for Substance Abuse Treatment (ICD-10-PCS; principal; 2018-07-16)
DX: F10.230 Alcohol dependence with withdrawal, uncomplicated (principal); F14.20 Cocaine dependence, uncomplicated; F17.213 Nicotine dependence, cigarettes, with withdrawal; I10 Essential (primary) hypertension; N18.9 Chronic kidney disease, unspecified; R80.9 Proteinuria, unspecified; B35.3 Tinea pedis; Z88.0 Allergy status to penicillin
CPT/HCPCS: 36415; 71046-TC-FY; 80053; 81003; 81015; 85027; 86593; 93005; 93010; J0735

== ENCOUNTER 2018-07-21 12:58 | Inpatient (IN) | payer OTHER ==
--- NOTE | 2018-07-21 11:30 | HP ---
[facility] Re[facility] Assess/Revision - Admission History Admitted to Rehab from: [facility] Date of Admission to Rehab: 07/21/18 - Findings Detox History & Physical reviewed: Yes Concur with findings: Yes Comments/Additional Findings: transferred from detox to rehab admission as per protocol Inpatient Rehab Admission - Initial Determination Are CD services needed?: Yes Free of communicable disease: Yes Not in need of hospitalization: Yes - Rehab Admission Criteria Previous failed treatment: Yes Poor recovery environment: Yes Comorbidities: Yes Lacks judgement: No Patient is meeting Inpatient Rehab admission criteria:: Yes
[~2018-07-21 12:58] MED LIST: ACETAMINOPHEN 325 MG TABLET (FP) PO PRN; IBUPROFEN 400 MG TABLET (FP) PO PRN; LOPERAMIDE HCL 2 MG CAPSULE PO PRN; MAG HYDROX/AL HYDROX/SIMETH 30 ML UNIT-DOSE CUP PO PRN; MAGNESIUM CITRATE 300 ML BOTTLE PO PRN; MAGNESIUM HYDROX 2400MG/30ML ORAL SUSPENSION 30 ML CUP PO PRN; MENTHOL/PHENOL 1 EACH UD MM PRN; NICOTINE POLACRILEX 2 MG GUM BUC PRN; P-EPHED 60MG/TRIPROLIDI 2.5MG TABLET PO PRN; guaiFENesin/D-METHORPHAN HB 10 ML UNIT-DOSE CUPS PO PRN
[2018-07-21] MEDS ORDERED: NICOTINE 14 MG/24 HOURS TOPICAL PATCH TD PRN (14:05)
[2018-07-21] MEDS: THIAMINE HCL 100 MG TABLET (FP) PO SCH (21:33)
[2018-07-21] MEDS: VERAPAMIL HCL 80 MG TABLET PO SCH (21:33)
[2018-07-21] MEDS: MELATONIN 5 MG TABLETS PO PRN (21:34)
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
[2018-07-22] MEDS ORDERED: cloNIDine HCL 0.1 MG TABLET PO ONE (06:48)
--- NOTE | 2018-07-22 06:50 | PN ---
S Progress Note Note: Patient's blood pressure now is B/P 151/104. Patient is asymptomatic Vital Signs Temperature 98.1 F 07/22/18 06:46 Pulse Rate 91 H 07/22/18 06:46 Respiratory Rate 20 07/22/18 06:46 Blood Pressure 151/104 H 07/22/18 06:46 O2 Sat by Pulse Oximetry (%) Action: Clonidine 0.1mg tablet oral ordered
[2018-07-22] MEDS: PRENATAL VITAMINS W/ FOLIC ACID TABLET (FP) PO SCH (11:09)
[2018-07-22] MEDS: amLODIPine BESYLATE 10 MG TABLET (FP) PO SCH (11:09)
[2018-07-22] MEDS: MELATONIN 5 MG TABLETS PO PRN (22:07)
[2018-07-22] MEDS: VERAPAMIL HCL 80 MG TABLET PO SCH (22:07)
[2018-07-22] MEDS: THIAMINE HCL 100 MG TABLET (FP) PO SCH (22:07)
[2018-07-23] MEDS: PRENATAL VITAMINS W/ FOLIC ACID TABLET (FP) PO SCH (10:45)
[2018-07-23] MEDS: amLODIPine BESYLATE 10 MG TABLET (FP) PO SCH (10:45)
[2018-07-23] MEDS ORDERED: PT OWN MED DRAWER 7, Y5N ONE (20:58)
[2018-07-23] MEDS: MELATONIN 5 MG TABLETS PO PRN (22:01)
[2018-07-23] MEDS: VERAPAMIL HCL 80 MG TABLET PO SCH (22:01)
[2018-07-23] MEDS: THIAMINE HCL 100 MG TABLET (FP) PO SCH (22:01)
[2018-07-24] MEDS: PRENATAL VITAMINS W/ FOLIC ACID TABLET (FP) PO SCH (10:29)
[2018-07-24] MEDS: amLODIPine BESYLATE 10 MG TABLET (FP) PO SCH (10:29)
[2018-07-24] MEDS: MELATONIN 5 MG TABLETS PO PRN (21:38)
[2018-07-24] MEDS: VERAPAMIL HCL 80 MG TABLET PO SCH (21:38)
[2018-07-24] MEDS: THIAMINE HCL 100 MG TABLET (FP) PO SCH (21:38)
[2018-07-25] MEDS: amLODIPine BESYLATE 10 MG TABLET (FP) PO SCH (10:37)
[2018-07-25] MEDS: PRENATAL VITAMINS W/ FOLIC ACID TABLET (FP) PO SCH (10:37)
[2018-07-25] MEDS: MELATONIN 5 MG TABLETS PO PRN (21:54)
[2018-07-25] MEDS: THIAMINE HCL 100 MG TABLET (FP) PO SCH (21:54)
[2018-07-25] MEDS: VERAPAMIL HCL 80 MG TABLET PO SCH (21:54)
[2018-07-26] MEDS: PRENATAL VITAMINS W/ FOLIC ACID TABLET (FP) PO SCH (10:07)
[2018-07-26] MEDS: amLODIPine BESYLATE 10 MG TABLET (FP) PO SCH (10:07)
[2018-07-26] MEDS: VERAPAMIL HCL 80 MG TABLET PO SCH (21:46)
[2018-07-26] MEDS: THIAMINE HCL 100 MG TABLET (FP) PO SCH (21:46)
[2018-07-27] MEDS: amLODIPine BESYLATE 10 MG TABLET (FP) PO SCH (10:13)
[2018-07-27] MEDS: PRENATAL VITAMINS W/ FOLIC ACID TABLET (FP) PO SCH (10:13)
[2018-07-27] MEDS: VERAPAMIL HCL 80 MG TABLET PO SCH (21:51)
[2018-07-27] MEDS: THIAMINE HCL 100 MG TABLET (FP) PO SCH (21:51)
[2018-07-28] MEDS: PRENATAL VITAMINS W/ FOLIC ACID TABLET (FP) PO SCH (10:49)
[2018-07-28] MEDS: amLODIPine BESYLATE 10 MG TABLET (FP) PO SCH (10:49)
[2018-07-28] MEDS ORDERED: PT OWN MED DRAWER 7, Y5N ONE (19:29)
[2018-07-28] MEDS: THIAMINE HCL 100 MG TABLET (FP) PO SCH (21:30)
[2018-07-28] MEDS: VERAPAMIL HCL 80 MG TABLET PO SCH (21:30)
[2018-07-29] MEDS: PRENATAL VITAMINS W/ FOLIC ACID TABLET (FP) PO SCH (10:06)
[2018-07-29] MEDS: amLODIPine BESYLATE 10 MG TABLET (FP) PO SCH (10:06)
[2018-07-29] MEDS: VERAPAMIL HCL 80 MG TABLET PO SCH (21:46)
[2018-07-29] MEDS: THIAMINE HCL 100 MG TABLET (FP) PO SCH (21:46)
[2018-07-30] MEDS: PRENATAL VITAMINS W/ FOLIC ACID TABLET (FP) PO SCH (10:44)
[2018-07-30] MEDS: amLODIPine BESYLATE 10 MG TABLET (FP) PO SCH (10:44)
[2018-07-30] MEDS: VERAPAMIL HCL 80 MG TABLET PO SCH (21:51)
[2018-07-30] MEDS: THIAMINE HCL 100 MG TABLET (FP) PO SCH (21:51)
[2018-07-31 07:01] VITALS: BP 131/84; PULSE 95; TEMP 97.5
== END 2018-07-31 08:35 | disposition home or self-care (01) | DRG 772 ==
LOC: YASAS 12:58 → Y3W 12:59
PROVIDERS: ADMIT Psychiatry & Neurology Psychiatry; ATTEND Psychiatry & Neurology Psychiatry
PROC: HZ42ZZZ Group Counseling for Substance Abuse Treatment, Cognitive-Behavioral (ICD-10-PCS; principal; 2018-07-21)
DX: F10.20 Alcohol dependence, uncomplicated (principal); F17.213 Nicotine dependence, cigarettes, with withdrawal; I10 Essential (primary) hypertension; Z86.2 Personal history of diseases of the blood and blood-forming organs and certain disorders involving the immune mechanism; Z88.0 Allergy status to penicillin
CPT/HCPCS: 36415; 87389; J0735

== ENCOUNTER 2018-08-25 13:30 | Inpatient (IN) | payer OTHER ==
[2018-08-25 14:00] VITALS: BMI 28.1
--- NOTE | 2018-08-25 16:56 | HP ---
"CIWA Score Nausea/Vomitin Muscle Tremors: 4-Moderate,w/Arms Extend Anxiety: 1-Mildly Anxious Agitation: 4-Moderately Restless Paroxysmal Sweats: 3 (Facial moisture) Orientation: 0-Oriented Tacttile Disturbances: 0-None Auditory Disturbances: 0-None Visual Disturbances: 2-Mild Sensitivity Headache: 0-None Present CIWA-Ar Total Score: 17 - Admission Criteria OASAS Guidelines: Admission for Medically Managed Detox: Requires at least one of the followin. CIWA greater than 12 2. Seizures within the past 24 hours 3. Delirium tremens within the past 24 hours 4. Hallucinations within the past 24 hours 5. Acute intervention needed for co occurring medical disorder 6. Acute intervention needed for co occurring psychiatric disorder 7. Severe withdrawal that cannot be handled at a lower level of care (continued vomiting, continued diarrhea, abnormal vital signs) requiring intravenous medication and/or fluids 8. Patient presents the following: CIWA greater than 12 (SAMIA 0.021) Admission Criteria Met: Admission criteria met Admission ROS S - HPI Chief Complaint: Here foi alcohol withdrawal. Allergies/Adverse Reactions: Allergies Allergy/AdvReac Type Severity Reaction Status Date / Time penicillin G Allergy Severe Hives Verified 08/25/18 15:45 History of Present Illness: Here for alcohol use disorder. Alcohol use began at age 13. States after past discharge only relapsed w/ alcohol and not crack. States strongly motivated. Hx: HTN: States no primary HCP and has not been compliant with medications. Discussed obtaining a PCP post discharge to follow-up on all health conditions and routine health care maintenance. Hx: PPD (+): CXR 07/21/18 negative 07/16/18 EKG reviewed. Hx: States depression resolved. Denies thoughts of harming self or others. Search Terms: Zaire Ignacio, 1965 Search Date: 08/25/2018 04:52:42 PM The Drug Utilization Report below displays all of the controlled substance prescriptions, if any, that your patient has filled in the last twelve months. The information displayed on this report is compiled from pharmacy submissions to the Department, and accurately reflects the information as submitted by the pharmacies. This report was requested by: Georgia Quispe | Reference #: [id number] There are no results for the search terms that you entered. Exam Limitations: No Limitations - Ebola screening Have you traveled outside of the country in the last 21 days: No Have you had contact with anyone from an Ebola affected area: No Have you been sick,other than usual withdrawal symptoms: No Do you have a fever: No - Review of Systems Constitutional: Chills, Diaphoresis EENT: reports: Blurred Vision, Hearing Loss, Dental Problems (Missing teeth. Chews and swallows okay.) Respiratory: reports: No Symptoms reported Cardiac: reports: No Symptoms Reported (Hx: HTN) GI: reports: Nausea, Vomiting : reports: Frequency Musculoskeletal: reports: No Symptoms Reported Integumentary: reports: No Symptoms Reported Neuro: reports: Tremors Endocrine: reports: No Symptoms Reported Hematology: reports: No Symptoms Reported Psychiatric: reports: Orientated x3, Agitated, Anxious, Depressed (In past. Denies at this time. Denies thoughts of harming self or others.) Patient History - Patient Medical History Hx Anemia: No Hx Asthma: No Hx Chronic Obstructive Pulmonary Disease (COPD): No Hx Cancer: No Hx Cardiac Disorders: No Hx Congestive Heart Failure: No Hx Hypertension: Yes (Non compliant w/ medications) Hx Hypercholesterolemia: No HX Cerebrovascular Accident: No Hx Seizures: No Hx Diabetes: No Hx Gastrointestinal Disorders: No Hx Liver Disease: No Hx Genitourinary Disorders: No Hx Sexually Transmitted Disorders: No Hx Renal Disease (ESRD): No Hx Thyroid Disease: No Hx Human Immunodeficiency Virus (HIV): (Never tested) Hx Hepatitis C: (Never tested) Hx Depression: Yes Hx Suicide Attempt: No Hx Bipolar Disorder: No Hx Schizophrenia: No - Patient Surgical History Past Surgical History: Yes Hx Neurologic Surgery: No Hx Cataract Extraction: No Hx Cardiac Surgery: No Hx Lung Surgery: No Hx Breast Surgery: No Hx Breast Biopsy: No Hx Abdominal Surgery: No Hx Appendectomy: No Hx Cholecystectomy: No Hx Genitourinary Surgery: No Hx Orthopedic Surgery: Yes (fx, left leg in 1995/right arm in 1975 (fall)) Anesthesia Reaction: No - PPD History Previous Implant?: Yes Documented Results: Positive w/proof (CXR 07/21/18 negative) Date: 07/18/18 Results: POSITIVE PPD to be Administered?: No - Smoking Cessation Smoking history: Current every day smoker Have you smoked in the past 12 months: Yes Aproximately how many cigarettes per day: 20 Cigars Per Day: 0 Hx Chewing Tobacco Use: No Initiated information on smoking cessation: Yes 'Breaking Loose' booklet given: 08/25/18 - Substance & Tx. History Hx Alcohol Use: Yes Hx Substance Use: Yes Substance Use Type: Alcohol, Cocaine Hx Substance Use Treatment: Yes (detiox, rehab) - Substances Abused Alcohol Route: Oral Frequency: Daily Amount used: 2-3 PINTS OF VODKA, 2-3 24oz of beer Age of first use: 13 Date of Last Use: 08/25/18 Admission Physical Exam S - Vital Signs Vital Signs: Vital Signs - 24 hr 08/25/18 13:58 Pulse Rate 97 H Respiratory 20 Rate Blood Pressure 163/113 H - Physical General Appearance: Yes: Mild Distress, Alcohol on Breath, Tremorous, Sweating, Anxious HEENTM: Yes: EOMI (Jerking movement eyes at (R) lateral gaze), Hearing grossly Normal, Normal Voice, KEVON, Pharynx Normal, Photophobia (Sensitivitiy to light noted upon assessment) Respiratory: Yes: Lungs Clear, Normal Breath Sounds, No Respiratory Distress Neck: Yes: No masses,lesions,Nodules, Supple Breast: Yes: Breast Exam Deferred Cardiology: Yes: Regular Rhythm, Regular Rate, S1, S2 (S2 split) Abdominal: Yes: Non Tender, Soft, Increased Bowel Sounds, Protuberent ( Increased abdominal adiposity) Genitourinary: Yes: Frequency Back: Yes: Normal Inspection Musculoskeletal: Yes: full range of Motion, Gait Steady Extremities: Yes: Normal Capillary Refill, Tremors (Tremors at rest and increases w/ arm elevation) Neurological: Yes: 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 NML intact (Jerking movement eyes at (R) lateral gaze), Fully Oriented, Alert, Motor Strength 5/5, Normal Mood/Affect Integumentary: Yes: Dry (Very dry skin, decreased skin turgot), Warm, Rash ( Flaky, dry, cracked skin of feet.), Other (Old scarring on legs) Lymphatic: Yes: Within Normal Limits - Diagnostic (1) Alcohol dependence with uncomplicated withdrawal Current Visit: Yes Status: Acute (2) Cocaine dependence in remission Current Visit: Yes Status: Chronic (3) Tinea pedis Current Visit: No Status: Acute Qualifiers: Laterality: bilateral Qualified Code(s): B35.3 - Tinea pedis (4) Nicotine dependence Current Visit: Yes Status: Chronic Qualifiers: Nicotine product type: cigarettes Substance use status: in withdrawal Qualified Code(s): F17.213 - Nicotine dependence, cigarettes, with withdrawal (5) Hypertension Current Visit: Yes Status: Acute Qualifiers: Hypertension type: unspecified Qualified Code(s): I10 - Essential (primary ) hypertension (6) History of positive PPD Current Visit: Yes Status: Chronic Comment: CXR 07/21/18 negative Cleared for Admission [facility] - Detox or Rehab [facility] Level of Care: Medically Managed Detox Regimen/Protocol: Librium [facility] Breath Alcohol Content Breath Alcohol Content: 0.021 Urine Drug Screen - Results Drug Screen Negative: No Urine Drug Screen Results: BZO-Benzodiazepines"
[2018-08-25] MEDS ORDERED: IBUPROFEN 400 MG TABLET (FP) PO PRN (17:26)
[2018-08-25] MEDS ORDERED: MENTHOL/PHENOL 1 EACH UD MM PRN (17:26)
[2018-08-25] MEDS ORDERED: chlordiazePOXIDE HCL 25 MG CAPSULE PO PRN (17:26)
[2018-08-25] MEDS ORDERED: MAGNESIUM HYDROX 2400MG/30ML ORAL SUSPENSION 30 ML CUP PO PRN (17:26)
[2018-08-25] MEDS ORDERED: P-EPHED 60MG/TRIPROLIDI 2.5MG TABLET PO PRN (17:26)
[2018-08-25] MEDS ORDERED: ACETAMINOPHEN 325 MG TABLET (FP) PO PRN (17:26)
[2018-08-25] MEDS ORDERED: NICOTINE POLACRILEX 2 MG GUM BC PRN (17:26)
[2018-08-25] MEDS ORDERED: LOPERAMIDE HCL 2 MG CAPSULE PO PRN (17:26)
[2018-08-25] MEDS ORDERED: guaiFENesin 200 MG/10 ML 10 ML UNIT-DOSE CUPS PO PRN (17:28)
[2018-08-25] MEDS ORDERED: MINERAL OIL/PETROLAT/WATER TOPICAL CREAM 113 GM JAR TP PRN (17:55)
[2018-08-25] MEDS ORDERED: chlordiazePOXIDE HCL 25 MG CAPSULE PO ONE (18:00)
[2018-08-25] MEDS ORDERED: AMMONIUM LACTATE 12% LOTION 225 GM BOTTLE TP PRN (18:00)
[2018-08-25] MEDS ORDERED: cloNIDine HCL 0.1 MG TABLET PO ONE (18:30)
[2018-08-25] MEDS: THIAMINE HCL 100 MG TABLET (FP) PO SCH (22:20)
[2018-08-25] MEDS: TOLNAFTATE 1% CREAM 15 GM TUBE TP SCH (22:21)
[2018-08-25] MEDS: chlordiazePOXIDE HCL 25 MG CAPSULE PO SCH (22:21)
[2018-08-25] MEDS: VERAPAMIL HCL 80 MG TABLET PO SCH (22:21)
[2018-08-26] MEDS: chlordiazePOXIDE HCL 25 MG CAPSULE PO SCH ×4 (05:14→22:21)
[2018-08-26 10:20] LABS: HEMATOCRIT 35.8 % (35.4-49); HEMOGLOBIN 11.7 GM/dL (11.7-16.9); MCH 28.8 pg (25.7-33.7); MCHC 32.6 g/dl (32.0-35.9); MEAN CELL VOLUME 88.3 fl (80-96); MEAN PLT VOLUME 7.7 fl (7.5-11.1); PLATELET COUNT 181 K/MM3 (134-434); RBC 4.05 M/mm3 (4.00-5.60); RDW 14.5 % (11.9-15.9); WHITE BLOOD COUNT 3.5 K/mm3 (4.0-10.0)
[2018-08-26 10:29] LABS: ALBUMIN 2.9 g/dl (3.4-5.0); ALK PHOS 62 U/L (45-117); ANION GAP 6 MMOL/L (8-16); BILIRUBIN,TOTAL 0.5 mg/dL (0.2-1); BLOOD UREA NITROGEN 18 mg/dL (7-18); CALCIUM 8.7 mg/dL (8.5-10.1); CHLORIDE 109 mmol/L (98-107); CO2 27 mmol/L (21-32); CREATININE 1.5 mg/dL (0.55-1.3); GLUCOSE,RANDOM 90 mg/dL (74-106); POTASSIUM 3.9 mmol/L (3.5-5.1); SGOT/AST 20 U/L (15-37); SGPT/ALT 26 U/L (13-61); SODIUM 142 mmol/L (136-145); TOT PROT 6.1 g/dl (6.4-8.2)
[2018-08-26] MEDS: TOLNAFTATE 1% CREAM 15 GM TUBE TP SCH ×2 (11:19→22:21)
[2018-08-26] MEDS: PRENATAL VITAMINS W/ FOLIC ACID TABLET (FP) PO SCH (11:19)
[2018-08-26] MEDS: NICOTINE 21 MG/24 HOURS TOPICAL PATCH TD SCH (11:19)
[2018-08-26] MEDS: amLODIPine BESYLATE 10 MG TABLET (FP) PO SCH (11:19)
--- NOTE | 2018-08-26 16:40 | PN ---
[facility] CIWA - CIWA Score Nausea/Vomitin-No Nausea/No Vomiting Muscle Tremors: None Anxiety: 1-Mildly Anxious Agitation: 0-Normal Activity Paroxysmal Sweats: 3 Orientation: 2-Disoriented Date<2 days Tacttile Disturbances: 0-None Auditory Disturbances: 2-Mild Harshness/Frighten Visual Disturbances: 3-Moderate Sensitivity Headache: 0-None Present CIWA-Ar Total Score: 11 S Progress Note (SOAP) Subjective: Sweating, Fatigue. Objective: PATIENT A & O X 2 (UNCERTAIN ABOUT CURRENT DAY / DATE). PATIENT OBSERVED AMBULATING ON UNIT. IN NO ACUTE DISTRESS. 08/26/18 17:26 Vital Signs Temperature 97.7 F 08/26/18 17:22 Pulse Rate 93 H 08/26/18 17:22 Respiratory Rate 19 08/26/18 17:22 Blood Pressure 148/96 08/26/18 17:22 O2 Sat by Pulse Oximetry (%) Laboratory Tests 08/26/18 08/26/18 07:00 07:00 WBC 3.5 L RBC 4.05 Hgb 11.7 Hct 35.8 MCV 88.3 MCH 28.8 MCHC 32.6 RDW 14.5 Plt Count 181 MPV 7.7 Sodium 142 Potassium 3.9 Chloride 109 H Carbon Dioxide 27 Anion Gap 6 L BUN 18 Creatinine 1.5 H Creat Clearance w eGFR 49.15 Random Glucose 90 Calcium 8.7 Total Bilirubin 0.5 AST 20 ALT 26 Alkaline Phosphatase 62 Total Protein 6.1 L Albumin 2.9 L LABS NOTED. Assessment: 08/26/18 17:27 WITHDRAWAL SYMPTOMS. HYPERTENSION. 08/26/18 17:29 Plan: CONTINUE DETOX. CLONIDINE, 0.1 MG PO X 1 FOR PERSISTENTLY ELEVATED BP. D/C IBUPROFEN FOR ABNORMAL ADMISSION RENAL LAB VALUES.
[2018-08-26] MEDS ORDERED: cloNIDine HCL 0.1 MG TABLET PO ONE (17:15)
[2018-08-26] MEDS: VERAPAMIL HCL 80 MG TABLET PO SCH (22:21)
[2018-08-26] MEDS: MELATONIN 5 MG TABLETS PO PRN (22:21)
[2018-08-26] MEDS: THIAMINE HCL 100 MG TABLET (FP) PO SCH (22:21)
[2018-08-27] MEDS: chlordiazePOXIDE HCL 25 MG CAPSULE PO SCH ×3 (05:45→18:21)
[2018-08-27] MEDS: amLODIPine BESYLATE 10 MG TABLET (FP) PO SCH (10:26)
[2018-08-27] MEDS: PRENATAL VITAMINS W/ FOLIC ACID TABLET (FP) PO SCH (10:26)
[2018-08-27] MEDS: NICOTINE 21 MG/24 HOURS TOPICAL PATCH TD SCH (10:26)
[2018-08-27] MEDS: TOLNAFTATE 1% CREAM 15 GM TUBE TP SCH ×2 (10:28→22:09)
--- NOTE | 2018-08-27 12:22 | PN ---
[facility] CIWA - CIWA Score Nausea/Vomitin-No Nausea/No Vomiting Muscle Tremors: 3 Anxiety: 2 Agitation: 3 Paroxysmal Sweats: 3 Orientation: 0-Oriented Tacttile Disturbances: 0-None Auditory Disturbances: 0-None Visual Disturbances: 0-None Headache: 0-None Present CIWA-Ar Total Score: 11 S Progress Note (SOAP) Subjective: dry skin sweats shakes interrupted sleep body aches Objective: 08/27/18 12:22 Vital Signs Temperature 98.0 F 08/27/18 09:35 Pulse Rate 77 08/27/18 09:35 Respiratory Rate 18 08/27/18 09:35 Blood Pressure 122/68 08/27/18 09:35 O2 Sat by Pulse Oximetry (%) Laboratory Tests 08/26/18 08/26/18 07:00 07:00 WBC 3.5 L RBC 4.05 Hgb 11.7 Hct 35.8 MCV 88.3 MCH 28.8 MCHC 32.6 RDW 14.5 Plt Count 181 MPV 7.7 Sodium 142 Potassium 3.9 Chloride 109 H Carbon Dioxide 27 Anion Gap 6 L BUN 18 Creatinine 1.5 H Creat Clearance w eGFR 49.15 Random Glucose 90 Calcium 8.7 Total Bilirubin 0.5 AST 20 ALT 26 Alkaline Phosphatase 62 Total Protein 6.1 L Albumin 2.9 L aaox3 ambulating no acute distress Assessment: 08/27/18 12:23 withdrawal sx Plan: continue detox increase fluids
[2018-08-27] MEDS: chlordiazePOXIDE 5 MG CAPSULE PO SCH (22:09)
[2018-08-27] MEDS: VERAPAMIL HCL 80 MG TABLET PO SCH (22:09)
[2018-08-27] MEDS: THIAMINE HCL 100 MG TABLET (FP) PO SCH (22:09)
[2018-08-28] MEDS: chlordiazePOXIDE 5 MG CAPSULE PO SCH ×3 (05:15→17:41)
[2018-08-28] MEDS: NICOTINE 21 MG/24 HOURS TOPICAL PATCH TD SCH (10:48)
[2018-08-28] MEDS: PRENATAL VITAMINS W/ FOLIC ACID TABLET (FP) PO SCH (10:48)
[2018-08-28] MEDS: amLODIPine BESYLATE 10 MG TABLET (FP) PO SCH (10:48)
[2018-08-28] MEDS: TOLNAFTATE 1% CREAM 15 GM TUBE TP SCH ×2 (10:50→22:46)
--- NOTE | 2018-08-28 15:20 | PN ---
[facility] Progress Note (SOAP) Subjective: Fatigue. Objective: PATIENT A & O X 3, OBSERVED AMBULATING ON UNIT. IN NO ACUTE DISTRESS. 08/28/18 15:17 Vital Signs Temperature 97.5 F L 08/28/18 13:48 Pulse Rate 104 H 08/28/18 13:48 Respiratory Rate 18 08/28/18 13:48 Blood Pressure 149/93 08/28/18 13:48 O2 Sat by Pulse Oximetry (%) Laboratory Tests 08/26/18 08/26/18 07:00 07:00 WBC 3.5 L RBC 4.05 Hgb 11.7 Hct 35.8 MCV 88.3 MCH 28.8 MCHC 32.6 RDW 14.5 Plt Count 181 MPV 7.7 Sodium 142 Potassium 3.9 Chloride 109 H Carbon Dioxide 27 Anion Gap 6 L BUN 18 Creatinine 1.5 H Creat Clearance w eGFR 49.15 Random Glucose 90 Calcium 8.7 Total Bilirubin 0.5 AST 20 ALT 26 Alkaline Phosphatase 62 Total Protein 6.1 L Albumin 2.9 L LABS NOTED. Assessment: 08/28/18 15:19 WITHDRAWAL SYMPTOMS. LEUKOPENIA. 08/28/18 15:19 Plan: CONTINUE DETOX. INCREASE DAILY PO FLUID INTAKE.
[2018-08-28] MEDS: THIAMINE HCL 100 MG TABLET (FP) PO SCH (22:45)
[2018-08-28] MEDS: chlordiazePOXIDE HCL 10 MG CAPSULE PO SCH (22:45)
[2018-08-28] MEDS: VERAPAMIL HCL 80 MG TABLET PO SCH (22:46)
[2018-08-28] MEDS: MELATONIN 5 MG TABLETS PO PRN (22:47)
[2018-08-29] MEDS: chlordiazePOXIDE HCL 10 MG CAPSULE PO SCH (05:55)
[2018-08-29 06:56] VITALS: TEMP 97.5
--- NOTE | 2018-08-29 09:19 | DS ---
[facility] Detox Discharge Summary Admission Date: 08/25/18 Discharge Date: 08/29/18 - History Present History: Alcohol Dependence, Cocaine Dependence - Physical Exam Results Vital Signs: Vital Signs Temperature 97.5 F L 08/29/18 06:55 Pulse Rate 89 08/29/18 06:55 Respiratory Rate 18 08/29/18 06:55 Blood Pressure 131/87 08/29/18 06:55 O2 Sat by Pulse Oximetry (%) - Treatment Hospital Course: Detox Protocol Followed, Detoxed Safely, Responded well, Discharged Condition Good, Rehab Referral Accepted - Medication Discharge Medications: Ambulatory Orders Amlodipine Besylate [Norvasc -] 10 mg PO DAILY #30 tablet 08/28/18 Ammonium Lactate Cream [Lac-Hydrin 12% *Cream*] 1 applic TP DAILY #1 tube Verapamil HCl [Calan] 80 mg PO HS #30 tablet 08/28/18 - Diagnosis (1) Alcohol dependence with uncomplicated withdrawal Current Visit: Yes Status: Chronic (2) Hypertension Current Visit: Yes Status: Chronic Qualifiers: Hypertension type: unspecified Qualified Code(s): I10 - Essential (primary ) hypertension (3) Cocaine dependence in remission Current Visit: Yes Status: Chronic (4) History of positive PPD Current Visit: Yes Status: Chronic (5) Nicotine dependence Current Visit: Yes Status: Chronic Qualifiers: Nicotine product type: cigarettes Substance use status: uncomplicated Qualified Code(s): F17.210 - Nicotine dependence, cigarettes, uncomplicated (6) Tinea pedis Current Visit: Yes Status: Chronic Qualifiers: Laterality: bilateral Qualified Code(s): B35.3 - Tinea pedis (7) Alcohol-induced mood disorder Current Visit: No Status: Acute (8) CKD (chronic kidney disease) Current Visit: No Status: Acute Qualifiers: Chronic kidney disease stage: unspecified stage Qualified Code(s): N18.9 - Chronic kidney disease, unspecified (9) Depression Current Visit: No Status: Chronic (10) Renal insufficiency Current Visit: No Status: Chronic - AMA Did Patient Leave Against Medical Advice: No (going home)
[2018-08-29 09:33] VITALS: BP 122/81; PULSE 97
== END 2018-08-29 10:03 | disposition home or self-care (01) | DRG 774 ==
LOC: YASAS 13:30 → Y6N 17:24
PROC: HZ2ZZZZ Detoxification Services for Substance Abuse Treatment (ICD-10-PCS; principal; 2018-08-25)
DX: F10.24 Alcohol dependence with alcohol-induced mood disorder (principal); F14.21 Cocaine dependence, in remission; F17.210 Nicotine dependence, cigarettes, uncomplicated; F32.9 Major depressive disorder, single episode, unspecified; I10 Essential (primary) hypertension; B35.3 Tinea pedis; D72.819 Decreased white blood cell count, unspecified; R76.11 Nonspecific reaction to tuberculin skin test without active tuberculosis; N18.9 Chronic kidney disease, unspecified
CPT/HCPCS: 36415; 80053; 85027; J0735

== ENCOUNTER 2018-12-09 11:44 | Inpatient (IN) | payer OTHER ==
[2018-12-09 17:17] VITALS: BMI 25.8
--- NOTE | 2018-12-09 18:23 | HP ---
CIWA Score Nausea/Vomitin (vomit x 2) Muscle Tremors: 3 Anxiety: 3 Agitation: 0-Normal Activity Paroxysmal Sweats: 1-Minimal Palms Moist Orientation: 1-Uncertain about Date Tacttile Disturbances: 2-Mild Itch/Numbness/Burn Auditory Disturbances: 0-None Visual Disturbances: 1-Very Mild Sensitivity Headache: 0-None Present CIWA-Ar Total Score: 14 - Admission Criteria OASAS Guidelines: Admission for Medically Managed Detox: Requires at least one of the followin. CIWA greater than 12 2. Seizures within the past 24 hours 3. Delirium tremens within the past 24 hours 4. Hallucinations within the past 24 hours 5. Acute intervention needed for co occurring medical disorder 6. Acute intervention needed for co occurring psychiatric disorder 7. Severe withdrawal that cannot be handled at a lower level of care (continued vomiting, continued diarrhea, abnormal vital signs) requiring intravenous medication and/or fluids 8. Patient presents the following: CIWA greater than 12, Acute intervention needed for co-occurring med or psych disorder Admission Criteria Met: Admission criteria met Admission ROS S - HPI Chief Complaint: " im going through withdrawal, I got the shakes" Allergies/Adverse Reactions: Allergies Allergy/AdvReac Type Severity Reaction Status Date / Time penicillin G Allergy Severe Hives Verified 08/25/18 15:45 History of Present Illness: 53 yo male, homeless, with hx of nicotine and alcohol and nicotine dependence is here seeking detox d/t withdrawal symptoms. Last detox [facility] two months ago. PMHX: hx PPD + with Neg x-ray, HTN (non- compliant ). Psych: depression and schizophrenia, no link to mental health, reports hx of suicide x1 . Denies SI/HI. Reports hx of alcohol blackouts with last episode one day ago. Reports 10 year sobriety while in half-way , reports relapse upon discharged from half-way one year ago. Patient reports he's motivated to follow up with rehab upon completing detox. Exam Limitations: No Limitations - Ebola screening Have you traveled outside of the country in the last 21 days: No Have you had contact with anyone from an Ebola affected area: No - Review of Systems Constitutional: Chills, Loss of Appetite, Changes in sleep, Weakness, Unintentional Wgt. Loss EENT: reports: Other (light sensitivity) Respiratory: reports: No Symptoms reported Cardiac: reports: No Symptoms Reported GI: reports: Constipated (last BM today), Nausea, Poor Fluid Intake, Vomiting, Abdominal cramping : reports: No Symptoms Reported Musculoskeletal: reports: Back Pain Integumentary: reports: Dryness, Pruritus Neuro: reports: Dizziness Endocrine: reports: Increased Hunger, Increased Thirst Hematology: reports: No Symptoms Reported Psychiatric: reports: Orientated x3, Anxious Other Systems: Reviewed and Negative Patient History - Patient Medical History Hx Anemia: No Hx Asthma: No Hx Chronic Obstructive Pulmonary Disease (COPD): No Hx Cancer: No Hx Cardiac Disorders: No Hx Congestive Heart Failure: No Hx Hypertension: Yes (Non compliant w/ medications) Hx Hypercholesterolemia: No HX Cerebrovascular Accident: No Hx Seizures: No Hx Diabetes: No Hx Gastrointestinal Disorders: No Hx Liver Disease: No Hx Genitourinary Disorders: No Hx Sexually Transmitted Disorders: No Hx Renal Disease (ESRD): No Hx Thyroid Disease: No Hx Human Immunodeficiency Virus (HIV): (Never tested) Hx Hepatitis C: (Never tested) Hx Depression: Yes Hx Suicide Attempt: No Hx Bipolar Disorder: No Hx Schizophrenia: Yes - Patient Surgical History Past Surgical History: Yes Hx Neurologic Surgery: No Hx Cataract Extraction: No Hx Cardiac Surgery: No Hx Lung Surgery: No Hx Breast Surgery: No Hx Breast Biopsy: No Hx Abdominal Surgery: No Hx Appendectomy: No Hx Cholecystectomy: No Hx Genitourinary Surgery: No Hx Orthopedic Surgery: Yes (fx, left leg in 1995/right arm in 1975 (fall)) Anesthesia Reaction: No - PPD History Date: 07/18/18 Results: POSITIVE PPD to be Administered?: No - Smoking Cessation Smoking history: Current every day smoker Have you smoked in the past 12 months: Yes Aproximately how many cigarettes per day: 20 Cigars Per Day: 0 Hx Chewing Tobacco Use: No Initiated information on smoking cessation: Yes 'Breaking Loose' booklet given: 12/09/18 - Substance & Tx. History Hx Alcohol Use: Yes Hx Substance Use: Yes Substance Use Type: Alcohol, Cocaine Hx Substance Use Treatment: Yes (Last detox [facility] two months ago. ) - Substances abused Alcohol Substance route: Oral Frequency: Daily Amount used: beer: 1 x 6 pack, vodka : 1 pint Age of first use: 14 Date of last use: 12/09/18 Family Disease History - Family Disease History Family History: Denies Admission Physical Exam [facility] - Vital Signs Vital Signs: Vital Signs - 24 hr 12/09/18 17:11 Temperature 98.6 F Pulse Rate 106 H Respiratory 20 Rate Blood Pressure 128/84 - Physical General Appearance: Yes: Disheveled, Mild Distress, Thin, Tremorous, Anxious HEENTM: Yes: EOMI, Hearing grossly Normal, Normal ENT Inspection, Normocephalic , Normal Voice, KEVON, Pharynx Normal, Tm's normal, Other (poor dentition) Respiratory: Yes: Chest Non-Tender, Lungs Clear, Normal Breath Sounds, No Respiratory Distress, No Accessory Muscle Use Neck: Yes: Within Normal Limits Breast: Yes: Breast Exam Deferred Cardiology: Yes: Regular Rhythm, Regular Rate, Murmur Abdominal: Yes: Normal Bowel Sounds, Non Tender, Flat, Soft Genitourinary: Yes: Within Normal Limits Back: Yes: Normal Inspection Musculoskeletal: Yes: full range of Motion, Gait Steady, Pelvis Stable, Back pain Extremities: Yes: Normal Capillary Refill, Normal Inspection, Normal Range of Motion, Non-Tender Neurological: Yes: grain 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-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 NML intact, Fully Oriented, Alert, Motor Strength 5/5, Depressed Affect Integumentary: Yes: Normal Color, Dry, Warm Lymphatic: Yes: Within Normal Limits - Diagnostic (1) Alcohol dependence with uncomplicated withdrawal Current Visit: Yes Status: Chronic (2) History of positive PPD Current Visit: Yes Status: Chronic Comment: CXR 07/21/18 negative (3) Hypertension Current Visit: Yes Status: Chronic Qualifiers: Hypertension type: unspecified Qualified Code(s): I10 - Essential (primary ) hypertension (4) Nicotine dependence Current Visit: Yes Status: Chronic Qualifiers: Nicotine product type: cigarettes Substance use status: uncomplicated Qualified Code(s): F17.210 - Nicotine dependence, cigarettes, uncomplicated Cleared for Admission S - Detox or Rehab [facility] Level of Care: Medically Managed Detox Regimen/Protocol: Librium Breathalyzer - Breathalyzer Breathalyzer: 0 Urine Drug Screen - Test Device Lot number: [id number] Expiration date: 07/18/20 - Control Is test valid?: Yes - Results Drug screen NEGATIVE: Yes Inpatient Rehab Admission - Rehab Decision to Admit Inpatient rehab admission?: No
[2018-12-09] MEDS ORDERED: IBUPROFEN 400 MG TABLET (FP) PO PRN (18:29)
[2018-12-09] MEDS ORDERED: MENTHOL/PHENOL 1 EACH UD MM PRN (18:29)
[2018-12-09] MEDS ORDERED: MAG HYDROX/AL HYDROX/SIMETH 30 ML UNIT-DOSE CUP PO PRN (18:29)
[2018-12-09] MEDS ORDERED: ACETAMINOPHEN 325 MG TABLET (FP) PO PRN ×2 (18:29)
[2018-12-09] MEDS ORDERED: METHOCARBAMOL 500 MG TABLET PO PRN (18:29)
[2018-12-09] MEDS ORDERED: chlordiazePOXIDE HCL 25 MG CAPSULE PO PRN (18:29)
[2018-12-09] MEDS ORDERED: MAGNESIUM HYDROX 2400MG/30ML ORAL SUSPENSION 30 ML CUP PO PRN (18:29)
[2018-12-09] MEDS ORDERED: hydrOXYzine PAMOATE 25 MG CAPSULE (FP) PO PRN (18:29)
[2018-12-09] MEDS ORDERED: MAGNESIUM CITRATE 300 ML BOTTLE PO PRN (18:29)
[2018-12-09] MEDS ORDERED: BISMUTH SUBSALICYLATE 524 MG/30 ML UD PO PRN (18:29)
[2018-12-09] MEDS ORDERED: NICOTINE POLACRILEX 2 MG GUM BUC PRN (18:29)
[2018-12-09] MEDS ORDERED: cloNIDine HCL 0.1 MG TABLET PO ONE (19:12)
[2018-12-09] MEDS: THIAMINE HCL 100 MG TABLET (FP) PO SCH (22:31)
[2018-12-09] MEDS: chlordiazePOXIDE HCL 25 MG CAPSULE PO SCH (22:31)
[2018-12-09] MEDS: VITAMINS A AND D TOPICAL OINTMENT 60 GM TUBE TP SCH (22:31)
[2018-12-10] MEDS: chlordiazePOXIDE HCL 25 MG CAPSULE PO SCH ×4 (05:13→22:14)
--- NOTE | 2018-12-10 09:38 | PN ---
S CIWA - CIWA Score Nausea/Vomitin-Mild Nausea/No Vomiting Muscle Tremors: 3 Anxiety: 2 Agitation: 1-Slight > Activity Paroxysmal Sweats: 1-Minimal Palms Moist Orientation: 3-Disoriented Date>2 days Tacttile Disturbances: 0-None Auditory Disturbances: 0-None Visual Disturbances: 0-None Headache: 1-Very Mild CIWA-Ar Total Score: 12 [facility] Progress Note (SOAP) Subjective: tremor report having long history of hypertension begin amlodipin 10 mg po daily Objective: 12/10/18 09:45 Vital Signs Temperature 96.7 F L 12/10/18 09:24 Pulse Rate 98 H 12/10/18 09:24 Respiratory Rate 18 12/10/18 09:24 Blood Pressure 134/89 12/10/18 09:24 O2 Sat by Pulse Oximetry (%) 12/10/18 09:45 lab pending Assessment: 12/10/18 09:45 alcohol withdrawal sx Plan: continue detox
[2018-12-10] MEDS: PRENATAL VITAMINS W/ FOLIC ACID TABLET (FP) PO SCH (10:09)
[2018-12-10] MEDS: NICOTINE 14 MG/24 HOURS TOPICAL PATCH TD SCH (10:10)
[2018-12-10] MEDS: amLODIPine BESYLATE 10 MG TABLET (FP) PO SCH (10:10)
[2018-12-10] MEDS: VITAMINS A AND D TOPICAL OINTMENT 60 GM TUBE TP SCH ×2 (10:13→22:13)
[2018-12-10 12:10] LABS: HEMATOCRIT 41.9 % (35.4-49); HEMOGLOBIN 14.4 GM/dL (11.7-16.9); MCH 30.9 pg (25.7-33.7); MCHC 34.3 g/dl (32.0-35.9); MEAN CELL VOLUME 90.2 fl (80-96); MEAN PLT VOLUME 7.7 fl (7.5-11.1); PLATELET COUNT 175 K/MM3 (134-434); RBC 4.64 M/mm3 (4.00-5.60); RDW 15.6 % (11.9-15.9); WHITE BLOOD COUNT 5.3 K/mm3 (4.0-10.0)
[2018-12-10 12:13] LABS: ALBUMIN 3.6 g/dl (3.4-5.0); ALK PHOS 70 U/L (45-117); ANION GAP 9 MMOL/L (8-16); BILIRUBIN,TOTAL 0.4 mg/dL (0.2-1); BLOOD UREA NITROGEN 17 mg/dL (7-18); CALCIUM 9.7 mg/dL (8.5-10.1); CHLORIDE 107 mmol/L (98-107); CO2 26 mmol/L (21-32); CREATININE 1.5 mg/dL (0.55-1.3); GLUCOSE,RANDOM 126 mg/dL (74-106); POTASSIUM 3.8 mmol/L (3.5-5.1); SGOT/AST 16 U/L (15-37); SGPT/ALT 25 U/L (13-61); SODIUM 142 mmol/L (136-145); TOT PROT 7.2 g/dl (6.4-8.2)
[2018-12-10 14:52] LABS: EPI CELLS 0.4 /HPF (0-5/HPF); PH,URINE 5.5 (5.0-8.0); URINE APPEARANCE CLEAR; URINE BACTERIA 0.7 /hpf (NEGATIVE); URINE BILIRUBIN NEGATIVE (NEGATIVE); URINE CASTS 2 /lpf (0-8); URINE COLOR YELLOW; URINE GLUCOSE (UA) 2+ (NEGATIVE); URINE KETONE NEGATIVE (NEGATIVE); URINE LEUK ESTERASE NEGATIVE (NEGATIVE); URINE NITRITE NEGATIVE (NEGATIVE); URINE PROTEIN 1+ (NEGATIVE); URINE RBC 3 /hpf (0-4); URINE UROBILINOGEN 0.2 mg/dL (0.2-1.0); URINE WBC 1 /hpf (0-5)
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
[2018-12-10] MEDS: THIAMINE HCL 100 MG TABLET (FP) PO SCH (22:14)
[2018-12-10] MEDS: MELATONIN 5 MG TABLETS PO PRN (22:14)
[2018-12-11] MEDS: chlordiazePOXIDE HCL 25 MG CAPSULE PO SCH ×3 (05:04→17:29)
[2018-12-11] MEDS: amLODIPine BESYLATE 10 MG TABLET (FP) PO SCH (10:20)
[2018-12-11] MEDS: PRENATAL VITAMINS W/ FOLIC ACID TABLET (FP) PO SCH (10:20)
[2018-12-11] MEDS: VITAMINS A AND D TOPICAL OINTMENT 60 GM TUBE TP SCH ×2 (10:21→22:01)
[2018-12-11] MEDS: NICOTINE 14 MG/24 HOURS TOPICAL PATCH TD SCH (10:22)
--- NOTE | 2018-12-11 10:29 | PN ---
S CIWA - CIWA Score Nausea/Vomitin-Mild Nausea/No Vomiting Muscle Tremors: 2 Anxiety: 2 Agitation: 1-Slight > Activity Paroxysmal Sweats: 1-Minimal Palms Moist Orientation: 2-Disoriented Date<2 days Tacttile Disturbances: 0-None Auditory Disturbances: 0-None Visual Disturbances: 0-None Headache: 1-Very Mild CIWA-Ar Total Score: 10 S Progress Note (SOAP) Subjective: requesting hiv test hiv testing ordered Objective: 12/11/18 10:31 Vital Signs Temperature 98.6 F 12/11/18 09:37 Pulse Rate 116 H 12/11/18 09:37 Respiratory Rate 20 12/11/18 09:37 Blood Pressure 117/85 12/11/18 09:37 O2 Sat by Pulse Oximetry (%) Laboratory Last Values WBC 5.3 K/mm3 (4.0-10.0) 12/10/18 07:30 RBC 4.64 M/mm3 (4.00-5.60) 12/10/18 07:30 Hgb 14.4 GM/dL (11.7-16.9) 12/10/18 07:30 Hct 41.9 % (35.4-49) D 12/10/18 07:30 MCV 90.2 fl (80-96) 12/10/18 07:30 MCH 30.9 pg (25.7-33.7) 12/10/18 07:30 MCHC 34.3 g/dl (32.0-35.9) 12/10/18 07:30 RDW 15.6 % (11.9-15.9) 12/10/18 07:30 Plt Count 175 K/MM3 (134-434) 12/10/18 07:30 MPV 7.7 fl (7.5-11.1) 12/10/18 07:30 Sodium 142 mmol/L (136-145) 12/10/18 07:30 Potassium 3.8 mmol/L (3.5-5.1) 12/10/18 07:30 Chloride 107 mmol/L (98-107) 12/10/18 07:30 Carbon Dioxide 26 mmol/L (21-32) 12/10/18 07:30 Anion Gap 9 MMOL/L (8-16) 12/10/18 07:30 BUN 17 mg/dL (7-18) 12/10/18 07:30 Creatinine 1.5 mg/dL (0.55-1.3) H 12/10/18 07:30 Creat Clearance w eGFR 48.95 (>60) 12/10/18 07:30 Random Glucose 126 mg/dL (74-106) H 12/10/18 07:30 Calcium 9.7 mg/dL (8.5-10.1) 12/10/18 07:30 Total Bilirubin 0.4 mg/dL (0.2-1) 12/10/18 07:30 AST 16 U/L (15-37) 12/10/18 07:30 ALT 25 U/L (13-61) 12/10/18 07:30 Alkaline Phosphatase 70 U/L (45-117) 12/10/18 07:30 Total Protein 7.2 g/dl (6.4-8.2) 12/10/18 07:30 Albumin 3.6 g/dl (3.4-5.0) 12/10/18 07:30 Urine Color Yellow 12/09/18 01:05 Urine Appearance Clear 12/09/18 01:05 Urine pH 5.5 (5.0-8.0) 12/09/18 01:05 Ur Specific [place] 1.014 (1.010-1.035) 12/09/18 01:05 Urine Protein 1+ (NEGATIVE) H 12/09/18 01:05 Urine Glucose (UA) 2+ (NEGATIVE) H 12/09/18 01:05 Urine Ketones Negative (NEGATIVE) 12/09/18 01:05 Urine Blood Negative (NEGATIVE) 12/09/18 01:05 Urine Nitrite Negative (NEGATIVE) 12/09/18 01:05 Urine Bilirubin Negative (NEGATIVE) 12/09/18 01:05 Urine Urobilinogen 0.2 mg/dL (0.2-1.0) 12/09/18 01:05 Ur Leukocyte Esterase Negative (NEGATIVE) 12/09/18 01:05 Urine WBC (Auto) 1 /hpf (0-5) 12/09/18 01:05 Urine RBC (Auto) 3 /hpf (0-4) 12/09/18 01:05 Urine Casts (Auto) 2 /lpf (0-8) 12/09/18 01:05 U Epithel Cells (Auto) 0.4 /HPF (0-5/HPF) 12/09/18 01:05 Urine Bacteria (Auto) 0.7 /hpf (NEGATIVE) 12/09/18 01:05 RPR Titer Nonreactive (NONREACTIVE) 12/10/18 07:30 lab noted Assessment: 12/11/18 10:31 alcohol withdrawal sx requesting hiv test Plan: continue detox
[2018-12-11] MEDS: MELATONIN 5 MG TABLETS PO PRN (22:02)
[2018-12-11] MEDS: chlordiazePOXIDE HCL 10 MG CAPSULE PO SCH (22:02)
[2018-12-11] MEDS: THIAMINE HCL 100 MG TABLET (FP) PO SCH (22:02)
[2018-12-11] MEDS ORDERED: chlordiazePOXIDE HCL 10 MG CAPSULE PO PRN (23:00)
[2018-12-12] MEDS: chlordiazePOXIDE HCL 10 MG CAPSULE PO SCH ×4 (05:41→22:30)
[2018-12-12] MEDS: amLODIPine BESYLATE 10 MG TABLET (FP) PO SCH (10:04)
[2018-12-12] MEDS: PRENATAL VITAMINS W/ FOLIC ACID TABLET (FP) PO SCH (10:04)
[2018-12-12] MEDS: VITAMINS A AND D TOPICAL OINTMENT 60 GM TUBE TP SCH ×2 (10:04→22:30)
[2018-12-12] MEDS: NICOTINE 14 MG/24 HOURS TOPICAL PATCH TD SCH (10:06)
--- NOTE | 2018-12-12 14:47 | PN ---
S CIWA - CIWA Score Nausea/Vomitin-No Nausea/No Vomiting Muscle Tremors: 3 Anxiety: 1-Mildly Anxious Agitation: 0-Normal Activity Paroxysmal Sweats: No Perspiration Orientation: 0-Oriented Tacttile Disturbances: 1-Very Mild Itch/Numbness Auditory Disturbances: 0-None Visual Disturbances: 3-Moderate Sensitivity Headache: 0-None Present CIWA-Ar Total Score: 8 BHS Progress Note (SOAP) Subjective: Fatigue, Tremors, Interrupted Sleep. Objective: PATIENT A & O X 3, OBSERVED AMBULATING ON UNIT UNASSISTED. IN NO ACUTE DISTRESS. 12/12/18 14:48 Vital Signs Temperature 97.0 F L 12/12/18 13:05 Pulse Rate 92 H 12/12/18 13:05 Respiratory Rate 20 12/12/18 13:05 Blood Pressure 146/93 12/12/18 13:05 O2 Sat by Pulse Oximetry (%) Laboratory Tests 12/09/18 12/10/18 12/10/18 01:05 07:30 07:30 WBC 5.3 RBC 4.64 Hgb 14.4 Hct 41.9 D MCV 90.2 MCH 30.9 MCHC 34.3 RDW 15.6 Plt Count 175 MPV 7.7 Sodium 142 Potassium 3.8 Chloride 107 Carbon Dioxide 26 Anion Gap 9 BUN 17 Creatinine 1.5 H Creat Clearance w eGFR 48.95 Random Glucose 126 H Calcium 9.7 Total Bilirubin 0.4 AST 16 ALT 25 Alkaline Phosphatase 70 Total Protein 7.2 Albumin 3.6 Urine Color Yellow Urine Appearance Clear Urine pH 5.5 Ur Specific [place] 1.014 Urine Protein 1+ H Urine Glucose (UA) 2+ H Urine Ketones Negative Urine Blood Negative Urine Nitrite Negative Urine Bilirubin Negative Urine Urobilinogen 0.2 Ur Leukocyte Esterase Negative Urine WBC (Auto) 1 Urine RBC (Auto) 3 Urine Casts (Auto) 2 U Epithel Cells (Auto) 0.4 Urine Bacteria (Auto) 0.7 RPR Titer HIV 1&2 Antibody Screen HIV P24 Antigen 12/10/18 12/12/18 07:30 06:45 WBC RBC Hgb Hct MCV MCH MCHC RDW Plt Count MPV Sodium Potassium Chloride Carbon Dioxide Anion Gap BUN Creatinine Creat Clearance w eGFR Random Glucose Calcium Total Bilirubin AST ALT Alkaline Phosphatase Total Protein Albumin Urine Color Urine Appearance Urine pH Ur Specific [place] Urine Protein Urine Glucose (UA) Urine Ketones Urine Blood Urine Nitrite Urine Bilirubin Urine Urobilinogen Ur Leukocyte Esterase Urine WBC (Auto) Urine RBC (Auto) Urine Casts (Auto) U Epithel Cells (Auto) Urine Bacteria (Auto) RPR Titer Nonreactive HIV 1&2 Antibody Screen Negative HIV P24 Antigen Negative LABS NOTED. Assessment: WITHDRAWAL SYMPTOMS. HTN. 12/12/18 14:47 Plan: CONTINUE DETOX. INCREASE DAILY PO FLUID INTAKE. D/C IBUPROFEN AND MAGNESIUM-CONTAINING MEDS. FOR ABNORMAL ADMISSION RENAL LAB VALUES. CONTINUE TO MONITOR BP. PATIENT SCHEDULED FOR D/C TOMORROW AM.
[2018-12-12] MEDS ORDERED: VERAPAMIL HCL 40 MG TABLET (FP) PO ONE (14:50)
[2018-12-12] MEDS: MELATONIN 5 MG TABLETS PO PRN (22:30)
[2018-12-12] MEDS: THIAMINE HCL 100 MG TABLET (FP) PO SCH (22:30)
[2018-12-13 10:02] VITALS: BP 151/87; PULSE 116; TEMP 98.7
[2018-12-13] MEDS: PRENATAL VITAMINS W/ FOLIC ACID TABLET (FP) PO SCH (10:13)
[2018-12-13] MEDS: amLODIPine BESYLATE 10 MG TABLET (FP) PO SCH (10:14)
[2018-12-13] MEDS: NICOTINE 14 MG/24 HOURS TOPICAL PATCH TD SCH (10:14)
[2018-12-13] MEDS: VITAMINS A AND D TOPICAL OINTMENT 60 GM TUBE TP SCH (10:14)
[2018-12-13] MEDS: chlordiazePOXIDE HCL 10 MG CAPSULE PO SCH (11:21)
--- NOTE | 2018-12-13 12:56 | DS ---
[facility] Detox Discharge Summary Admission Date: 12/09/18 Discharge Date: 12/13/18 - History Present History: Alcohol Dependence Additional Comments: PATIENT REPORTS THAT CURRENT WITHDRAWAL / DETOX SYMPTOMS ARE MINIMAL IN DEGREE AND THAT HE FEELS WELL OVERALL AT TIME OF DISCHARGE FROM DETOX UNIT. PATIENT GOING TO [facility] ([place] FOR AFTERCARE. PATIENT ADVISED TO FOLLOW-UP WITH [employer]ORTGAGE [employer]AN [employer]DER AFTER DISCHARGE FROM REHAB UNIT FOR GENERAL MEDICAL ASSESSMENT AND FOR HISTORY OF HTN AND FOR ABNORMAL RENAL LABS VALUE RESULTS NOTED WHILE ADMITTED FOR DETOX. PATIENT VERBALIZED UNDERSTANDING OF ALL RECOMMENDATIONS. PATIENT WAS DISCHARGED FROM DETOX UNIT TO BE TAKEN OVER TO REHAB UNIT IN STABLE MEDICAL CONDITION. Pertinent Past History: HTN, Depression, Schizophrenia, History Of Positive PPD, Nicotine Dependence. - Physical Exam Results Vital Signs: Vital Signs Temperature 98.7 F 12/13/18 10:01 Pulse Rate 116 H 12/13/18 10:01 Respiratory Rate 20 12/13/18 10:01 Blood Pressure 151/87 12/13/18 10:01 O2 Sat by Pulse Oximetry (%) Pertinent Admission Physical Exam Findings: WITHDRAWAL SYMPTOMS. Laboratory Tests 12/09/18 12/10/18 12/10/18 01:05 07:30 07:30 WBC 5.3 RBC 4.64 Hgb 14.4 Hct 41.9 D MCV 90.2 MCH 30.9 MCHC 34.3 RDW 15.6 Plt Count 175 MPV 7.7 Sodium 142 Potassium 3.8 Chloride 107 Carbon Dioxide 26 Anion Gap 9 BUN 17 Creatinine 1.5 H Creat Clearance w eGFR 48.95 Random Glucose 126 H Calcium 9.7 Total Bilirubin 0.4 AST 16 ALT 25 Alkaline Phosphatase 70 Total Protein 7.2 Albumin 3.6 Urine Color Yellow Urine Appearance Clear Urine pH 5.5 Ur Specific [place] 1.014 Urine Protein 1+ H Urine Glucose (UA) 2+ H Urine Ketones Negative Urine Blood Negative Urine Nitrite Negative Urine Bilirubin Negative Urine Urobilinogen 0.2 Ur Leukocyte Esterase Negative Urine WBC (Auto) 1 Urine RBC (Auto) 3 Urine Casts (Auto) 2 U Epithel Cells (Auto) 0.4 Urine Bacteria (Auto) 0.7 RPR Titer HIV 1&2 Antibody Screen HIV P24 Antigen 12/10/18 12/12/18 07:30 06:45 WBC RBC Hgb Hct MCV MCH MCHC RDW Plt Count MPV Sodium Potassium Chloride Carbon Dioxide Anion Gap BUN Creatinine Creat Clearance w eGFR Random Glucose Calcium Total Bilirubin AST ALT Alkaline Phosphatase Total Protein Albumin Urine Color Urine Appearance Urine pH Ur Specific [place] Urine Protein Urine Glucose (UA) Urine Ketones Urine Blood Urine Nitrite Urine Bilirubin Urine Urobilinogen Ur Leukocyte Esterase Urine WBC (Auto) Urine RBC (Auto) Urine Casts (Auto) U Epithel Cells (Auto) Urine Bacteria (Auto) RPR Titer Nonreactive HIV 1&2 Antibody Screen Negative HIV P24 Antigen Negative LABS NOTED. - Treatment Hospital Course: Detox Protocol Followed, Detoxed Safely, Responded well, Discharged Condition Good, Rehab Referral Accepted Patient has Accepted a Rehab Referral to: [facility] ([place], [place]). - Medication Discharge Medications: Ambulatory Orders Verapamil HCl [Calan] 80 mg PO HS #30 tablet 08/28/18 Amlodipine Besylate [Norvasc -] 10 mg PO DAILY 12/10/18 - Diagnosis (1) Alcohol dependence with uncomplicated withdrawal Status: Acute (2) History of positive PPD Status: Chronic (3) Hypertension Status: Chronic Qualifiers: Hypertension type: unspecified Qualified Code(s): I10 - Essential (primary ) hypertension (4) Nicotine dependence Status: Chronic Qualifiers: Nicotine product type: cigarettes Substance use status: uncomplicated Qualified Code(s): F17.210 - Nicotine dependence, cigarettes, uncomplicated (5) Alcohol-induced mood disorder Status: Chronic - AMA Did Patient Leave Against Medical Advice: No
== END 2018-12-13 11:20 | disposition other institution (70) | DRG 775 ==
LOC: YASAS 11:44 → Y3N 18:44
PROVIDERS: ADMIT Surgery; ATTEND Surgery
PROC: HZ2ZZZZ Detoxification Services for Substance Abuse Treatment (ICD-10-PCS; principal; 2018-12-09)
DX: F10.230 Alcohol dependence with withdrawal, uncomplicated (principal); F17.210 Nicotine dependence, cigarettes, uncomplicated; F10.24 Alcohol dependence with alcohol-induced mood disorder; F20.9 Schizophrenia, unspecified; F32.9 Major depressive disorder, single episode, unspecified; I10 Essential (primary) hypertension; R76.11 Nonspecific reaction to tuberculin skin test without active tuberculosis; Z88.0 Allergy status to penicillin; Z91.14 Patient's other noncompliance with medication regimen
CPT/HCPCS: 36415; 80053; 81003; 85027; 86593; 87389; J0735

== ENCOUNTER 2018-12-13 11:34 | Inpatient (IN) | payer OTHER ==
[2018-12-13] MEDS ORDERED: MENTHOL/PHENOL 1 EACH UD MM PRN (12:44)
[2018-12-13] MEDS ORDERED: ACETAMINOPHEN 325 MG TABLET (FP) PO PRN (12:44)
[2018-12-13] MEDS ORDERED: guaiFENesin 200 MG/10 ML 10 ML UNIT-DOSE CUPS PO PRN (12:44)
[2018-12-13] MEDS ORDERED: NICOTINE POLACRILEX 2 MG GUM BUC PRN (12:44)
[2018-12-13] MEDS ORDERED: LOPERAMIDE HCL 2 MG CAPSULE PO PRN (12:44)
--- NOTE | 2018-12-13 12:46 | HP ---
[facility] Rehab Assess/Revision - Admission History Admitted to Rehab from: [facility] Date of Admission to Rehab: 12/13/2018 - Vital signs Vital Signs: NOTED; STABLE. - Findings Detox History & Physical reviewed: Yes Concur with findings: Yes Comments/Additional Findings: PATIENT'S MEDICAL / MEDICATION HISTORY REVIEWED PRIOR TO DISCHARGE FROM DETOX UNIT. PATIENT WAS DISCHARGED FROM DETOX UNIT TO BE TAKEN OVER TO REHAB UNIT IN STABLE MEDICAL CONDITION. Inpatient Rehab Admission - Rehab Decision to Admit Inpatient rehab admission?: Yes - Initial Determination Are CD services needed?: Yes Free of communicable disease: Yes Not in need of hospitalization: Yes - Rehab Admission Criteria Previous failed treatment: Yes Poor recovery environment: Yes Comorbidities: Yes Lacks judgement: No Patient is meeting Inpatient Rehab admission criteria:: Yes
[2018-12-13] MEDS: LISINOPRIL 10 MG TABLET (FP) PO SCH ×2 (13:50→21:36)
[2018-12-13] MEDS: MELATONIN 5 MG TABLETS PO PRN (21:36)
[2018-12-13] MEDS: THIAMINE HCL 100 MG TABLET (FP) PO SCH (21:36)
[2018-12-14] MEDS: NICOTINE 14 MG/24 HOURS TOPICAL PATCH TD SCH (09:45)
[2018-12-14] MEDS: LISINOPRIL 10 MG TABLET (FP) PO SCH ×2 (09:45→21:31)
[2018-12-14] MEDS: amLODIPine BESYLATE 10 MG TABLET (FP) PO SCH (09:45)
[2018-12-14] MEDS: PRENATAL VITAMINS W/ FOLIC ACID TABLET (FP) PO SCH (09:45)
[2018-12-14] MEDS: THIAMINE HCL 100 MG TABLET (FP) PO SCH (21:31)
[2018-12-14] MEDS: MELATONIN 5 MG TABLETS PO PRN (21:31)
[2018-12-15] MEDS: LISINOPRIL 10 MG TABLET (FP) PO SCH ×2 (10:20→21:29)
[2018-12-15] MEDS: amLODIPine BESYLATE 10 MG TABLET (FP) PO SCH (10:20)
[2018-12-15] MEDS: PRENATAL VITAMINS W/ FOLIC ACID TABLET (FP) PO SCH (10:20)
[2018-12-15] MEDS: NICOTINE 14 MG/24 HOURS TOPICAL PATCH TD SCH (10:20)
[2018-12-15] MEDS: P-EPHED 60MG/TRIPROLIDI 2.5MG TABLET PO PRN (21:29)
[2018-12-15] MEDS: THIAMINE HCL 100 MG TABLET (FP) PO SCH (21:29)
[2018-12-15] MEDS: MELATONIN 5 MG TABLETS PO PRN (21:29)
[2018-12-16] MEDS: PRENATAL VITAMINS W/ FOLIC ACID TABLET (FP) PO SCH (10:41)
[2018-12-16] MEDS: amLODIPine BESYLATE 10 MG TABLET (FP) PO SCH (10:41)
[2018-12-16] MEDS: LISINOPRIL 10 MG TABLET (FP) PO SCH ×2 (10:41→21:59)
[2018-12-16] MEDS: NICOTINE 14 MG/24 HOURS TOPICAL PATCH TD SCH (10:41)
[2018-12-16] MEDS: THIAMINE HCL 100 MG TABLET (FP) PO SCH (21:59)
[2018-12-16] MEDS: P-EPHED 60MG/TRIPROLIDI 2.5MG TABLET PO PRN (22:00)
[2018-12-17 07:01] VITALS: BP 137/97; PULSE 89; TEMP 98.6
--- NOTE | 2018-12-17 09:11 | PN ---
[facility] Progress Note (SOAP) Subjective: Client is leaving for personal reasons. Objective: No neurological deficits noted, CN2-12 intact, Lungs clear, Heart sounds regular , Abd soft, non-tender, non-distended. Medically stable. Vital Signs (72 hours) 12/14/18 12/14/18 12/15/18 10:00 22:00 06:00 Temperature 96.7 F L Pulse Rate 89 101 H 95 H Respiratory 18 Rate Blood Pressure 121/74 153/101 H 135/96 12/15/18 12/15/18 12/16/18 10:00 20:40 03:30 Temperature Pulse Rate 98 H 106 H Respiratory 18 18 Rate Blood Pressure 132/86 130/83 12/16/18 12/16/18 12/16/18 07:24 09:30 12:44 Temperature 97.3 F L Pulse Rate 95 H 111 H 98 H Respiratory 18 18 Rate Blood Pressure 121/91 113/70 139/74 12/17/18 12/17/18 12/17/18 00:30 03:30 07:00 Temperature 98.6 F Pulse Rate 89 Respiratory 18 18 18 Rate Blood Pressure 137/97 12/17/18 09:10 Assessment: Medically stable for discharge. Discharge dx: HTN Renal insufficiency ETOH dependence, chronic 12/17/18 09:12 Plan: Client will seek aftercare at [facility], receives medical care at [facility] outpatient. Prescriptions transmitted to pharmacy.
[2018-12-17] MEDS: amLODIPine BESYLATE 10 MG TABLET (FP) PO SCH (09:18)
[2018-12-17] MEDS: LISINOPRIL 10 MG TABLET (FP) PO SCH (09:18)
[2018-12-17] MEDS: PRENATAL VITAMINS W/ FOLIC ACID TABLET (FP) PO SCH (09:18)
[2018-12-17] MEDS: NICOTINE 14 MG/24 HOURS TOPICAL PATCH TD SCH (09:19)
== END 2018-12-17 09:35 | disposition left against medical advice (07) | DRG 770 ==
LOC: YASAS 11:34 → Y3W 11:35
PROVIDERS: ADMIT Neuromusculoskeletal Medicine & OMM; ATTEND Neuromusculoskeletal Medicine & OMM
PROC: HZ42ZZZ Group Counseling for Substance Abuse Treatment, Cognitive-Behavioral (ICD-10-PCS; principal; 2018-12-13)
PROC: [UNRECOGNIZED PROCEDURE] (2018-12-13)
DX: F10.20 Alcohol dependence, uncomplicated (principal); I12.9 Hypertensive chronic kidney disease with stage 1 through stage 4 chronic kidney disease, or unspecified chronic kidney disease; N28.9 Disorder of kidney and ureter, unspecified

== ENCOUNTER 2019-04-03 12:49 | Emergency (ER) | payer OTHER ==
[2019-04-03 13:08] VITALS: TEMP 97.6; BMI 25.8
--- NOTE | 2019-04-03 13:09 | PDOC ---
History of Present Illness - General Chief Complaint: Pain Stated Complaint: LEG PAIN Time Seen by Provider: 04/03/19 13:09 - History of Present Illness Initial Comments: 04/03/19 13:29 53 year old man with a history of HTN and etoh intoxication Past History - Past Medical History Allergies/Adverse Reactions: Allergies Allergy/AdvReac Type Severity Reaction Status Date / Time penicillin G Allergy Severe Hives Verified 04/03/19 13:01 Home Medications: Ambulatory Orders NK [No Known Home Medication] 04/03/19 Anemia: No Asthma: No Cancer: No Cardiac Disorders: No CVA: No COPD: No CHF: No Diabetes: No GI Disorders: No Disorders: No HTN: Yes Hypercholesterolemia: No Kidney Stones: No Liver Disease: No Seizures: No Thyroid Disease: No - Surgical History Abdominal Surgery: No Appendectomy: No Cardiac Surgery: No Cholecystectomy: No Lung Surgery: No Neurologic Surgery: No Orthopedic Surgery: Yes (fx, left leg in 1995/right arm in 1975 (fall)) - Reproductive History Testicular Surgery: No - Immunization History Immunization Up to Date: No - Suicide/Smoking/Psychosocial Hx Smoking History: Current every day smoker Have you smoked in the past 12 months: Yes Number of Cigarettes Smoked Daily: 20 Cigars Per Day: 0 Information on smoking cessation initiated: No 'Breaking Loose' booklet given: 12/09/18 Hx Alcohol Use: No (DENIES) Drug/Substance Use Hx: No (DENIES) Substance Use Type: Alcohol, Cocaine Hx Substance Use Treatment: Yes *Physical Exam - Vital Signs Last Vital Signs Temp Pulse Resp BP Pulse Ox 97.6 F 62 18 169/113 H 99 04/03/19 13:04 04/03/19 13:04 04/03/19 13:04 04/03/19 13:04 04/03/19 13:04 *DC/Admit/Observation/Transfer Diagnosis at time of Disposition: Leg pain - Discharge Dispostion Disposition: HOME Condition at time of disposition: Stable Decision to Admit order: No - Referrals - Patient Instructions Printed Discharge Instructions: DI for Leg Pain Additional Instructions: You were seen in the ED for evaluation of leg pain. Your leg is not different than your regular leg pain that you have had for years. You were treated with Motrin because you said that this typically helps you. Return to the ED if you experiences worsening leg pain, numbness or tingling or any falls. - Post Discharge Activity
--- NOTE | 2019-04-03 14:02 | PDOC ---
Attending Attestation - Resident Resident Name: Gayathri Mazariegos - ED Attending Attestation I have performed the following: I have examined & evaluated the patient, The case was reviewed & discussed with the resident, I agree w/resident's findings & plan, Exceptions are as noted - HPI HPI: 04/03/19 14:01 Mr Ignacio is a 53 yo M long h/o alcohol and cocaine dependence, HTN, seizure d/o, depression who presents to the ER from [facility] requesting Detox. The patient was at [facility], told them he has leg pain. Here, the patient denies acute traumatic injury (unlike what he told the [facility] team). He tells us that he has had leg pain since the . He is currently undomiciled. Last use of alcohol was at 4am - Physicial Exam PE: 04/03/19 14:09 GENERAL: The patient is in no acute distress, resting comfortably, discheveled ENT: Moist mucous membranes. NECK: Normal range of motion, supple, no nuchal rigidity LUNGS: Breath sounds equal HEART:Regular rate and rhythm, normal S1 and S2 without murmur ABDOMEN: Soft, nontender EXTREMITIES: Normal range of motion, no edema. NEUROLOGICAL: Cranial nerves II through XII grossly intact. Normal speech. No focal neurological deficits. SKIN: Dry skin, no rashes, no cellulitis - Medical Decision Making 04/03/19 14:10 53 yo M sent to the ER for what amounts to chronic leg pain [facility] called, they say they have no additional male beds They also say the have NO possible referrals to give this patient They have told us that we can send this patient back to [facility] for rehab medicine ... where they don't have beds We have contacted an alternative detox facility Will give librium 50mg Will discharge 04/03/19 15:51 Pt given motrin Pt ambulated in the ER Will discharge to home
[2019-04-03] MEDS ORDERED: IBUPROFEN 400 MG TABLET (FP) PO ONE ×2 (15:42→15:48)
[2019-04-03 16:03] VITALS: BP 163/95; PULSE 76
== END 2019-04-03 16:04 | disposition home or self-care (01) ==
LOC: JER 12:49
DX: M79.606 Pain in leg, unspecified (principal); F17.210 Nicotine dependence, cigarettes, uncomplicated; I10 Essential (primary) hypertension
CPT/HCPCS: 99282-25